=== PATIENT | male | born 1945 | race Caucasian/White ===

== ENCOUNTER 2021-02-02 09:34 | Emergency (ER) | payer MEDICARE, OTHER, SELFPAY ==
[2021-02-02 10:05] VITALS: BP 146/81; PULSE 65; RESP 14; TEMP 36.6; O2SAT 96; BMI 27.9
--- NOTE | 2021-02-02 10:07 | ED_ITS ---
HPI - GI Bleed General: Chief complaint: GI Bleed Stated complaint: rectum bleeding Time Seen by Provider: 02/02/21 09:49 History of Present Illness: HPI Narrative: Mr Snell is a 75-year-old gentleman without significant past medical history presents emergency department due to bloody diarrhea. Symptom onset was acute last night. He denies preceding known factors and it is been at his baseline health. He had multiple episodes of nonpainful bloody dark red stools. This improved slightly at about 3 AM however since recurred with passing clots. He denies similar episodes in the past. Overall the intensity is moderate. The course has mildly improved. He cannot think of any other specific provoking, exacerbating, or alleviating factors. The patient has not had a family history of similar. He does have a remote history of smoking. No alcohol use. No trauma. Relieving factors: bowel movement Review of Systems General: Reports: 10 or more systems reviewed and unremarkable except in HPI and below Narrative: CONSTITUTIONAL: denies fever, fatigue, weakness EYES - denies pain, denies loss of vision EARS - denies ear issues. NOSE - denies congestion or rhinorrhea. THROAT - denies sore throat or difficulty swallowing. CARDIOVASCULAR - denies chest pain and palpitations RESPIRATORY - denies shortness of breath and cough GASTROINTESTINAL - denies abdominal pain, no nausea vomiting, no prior changes in bowel habits GENITOURINARY - denies dysuria or urinary frequency MUSCULOSKELETAL- denies deformity or pain SKIN - denies rashes or new changed skin lesions NEUROLOGIC - denies focal weakness or sensory changes HEMATOLOGIC/LYMPHATIC - denies easy bruising or lymphadenopathy. [facility] ED PFSH: Medical History (Updated 02/02/21 @ 13:11 by Ramakrishna Romero MD) BPH loc w urin obs/LUTS HTN (hypertension) Palpitation Family History Mother , 87 Heart valve problem Failure to thrive in adult Brother Heart valve problem Torn aortic cusp Cancer Sister Heart valve problem Father , 80s Cancer Social History Smoking and tobacco status: former smoker Alcohol intake: never Marital status: Current occupational status: retired History of recent travel: No Physical Exam Narrative: EXAM NARRATIVE: GENERAL/CONSTITUTIONAL - well-appearing. No acute distress. Eyes - PERRL, no conjunctival injection ENMT - Atraumatic external nose and ears. Moist mucous membranes NECK - supple. trachea midline CARDIOVASCULAR - regular rate and rhythm. Peripheral pulses 2+ and equal RESPIRATORY -clear to auscultation bilaterally. No retractions or accessory muscle use. ABDOMEN/GI - Nontender/Nondistended. No tenderness to percussion or evidence of peritonitis MSK - Extremities without obvious deformity or tenderness to palpation SKIN - Warm, Dry NEURO - alert and appropriately oriented. strength and sensation intact. Moves all extremities equally. PSYCH - Appropriate mood and affect Course ED course: - Patient was seen and evaluated by me at bedside - Patient placed on cardiac monitors, IV access obtained - Initial evaluation notable for no acute distress, nontoxic appearance. Benign abdominal exam. - Labs and imaging obtained and reviewed - Labs notable for stable hemoglobin, no significant metabolic abnormalities to explain symptoms. - Imaging notable for increased stool burden, diverticulosis, no obvious other significant finding to explain patient's symptoms. - The incidental finding regarding gallbladder was discussed with the patient. I engaged in shared decision-making given the patient has no right upper quadrant tenderness or other typical cholecystitis symptoms. I offered ultrasound which the patient declined. This discussion was further aided by adding LFTs which were normal. - Upon serial reexamination after treatment the patient was similar without recurrence of melena or bloody diarrhea. - Based on patient history, evaluation, labs, and imaging as interpreted the most likely cause of the patient's condition is lower GI bleed, in the context of history, exam, and symptoms may be related to increased stool burden and diverticulosis. Bowel regimen was discussed with the patient. - The results of ED evaluation were discussed with the patient including prescriptions and/or symptomatic cares including appropriate and responsible use, followup plan, and return precautions. The patient verbalized understanding and felt safe for discharge. - Patient discharged in satisfactory condition. Vital Signs: Vital signs: Vital Signs Temperature 97.5 F L 02/02/21 13:37 Pulse Rate 50 L 02/02/21 13:37 Respiratory Rate 16 02/02/21 13:37 Blood Pressure 132/80 02/02/21 13:37 Pulse Oximetry 98 02/02/21 13:37 MDM - GI Bleed Medical Records: Attestation: I reviewed the patient's medical records. Lab Data: Attestation: I reviewed the patient's lab results. Labs: Lab Results 02/02/21 02/02/21 02/02/21 Range/Units 10:30 10:30 10:30 WBC 7.3 (4.0-10.0) 10^3/ uL RBC 4.88 (4.1-5.3) 10^6/u L Hgb 14.0 (11.7-16.6) g/dL Hct 42.8 (42.0-52.0) % MCV 87.7 (80-94) fl MCH 28.7 (28.0-34.0) pg MCHC 32.7 (30.0-36.0) g/dL RDW 14.3 (12.1-15.1) % Plt Count 279 (130-400) 10^3/c mm MPV 8.8 (7.4-10.4) fL Neut % (Auto) 57.8 % Lymph % (Auto) 26.1 % [place] % (Auto) 11.6 % Eos % (Auto) 3.4 % Baso % (Auto) 0.8 % Neut # (Auto) 4.22 (1.8-7.7) 10^3/u L Lymph # (Auto) 1.9 (0.8-4.8) 10^3/u L [place] # (Auto) 0.9 (0.2-0.9) 10^3/u L Eos # (Auto) 0.3 (0.0-0.8) 10^3/u L Baso # (Auto) 0.1 (0.0-0.1) 10^3/u L Nucleated RBC % (a uto) 0 % Nucleated RBCs # 0.0 /100WBC PT 13.50 (12.1-14.9) SECO NDS INR 1.00 (0.8-1.2) Sodium 138 (136-145) mmol/L Potassium 4.2 (3.5-5.1) mmol/L Chloride 103 (98-107) mmol/L Carbon Dioxide 28 (22-29) mmol/L Anion Gap 11.2 (5-19) BUN 28 H (8-23) mg/dL Creatinine 1.0 (0.7-1.2) mg/dL GFR Calculation Not Reportable Glucose 103 (65-115) mg/dL Calculated Osmolal ity 292 (285-295) mOsm/k g Calcium 8.6 (8.5-10.5) mg/dL Total Bilirubin (0.15-1.2) mg/dL Direct Bilirubin (0.00-0.30) mg/d L AST (0-40) U/L ALT (0-41) U/L Alkaline Phosphata se (40-130) IU/L Total Protein (6.6-8.7) g/dL Albumin (3.5-5.2) g/dL Globulin (1.3-4.6) g/dL Lipase (13-60) U/L 02/02/21 Range/Units 10:30 WBC (4.0-10.0) 10^3/ uL RBC (4.1-5.3) 10^6/u L Hgb (11.7-16.6) g/dL Hct (42.0-52.0) % MCV (80-94) fl MCH (28.0-34.0) pg MCHC (30.0-36.0) g/dL RDW (12.1-15.1) % Plt Count (130-400) 10^3/c mm MPV (7.4-10.4) fL Neut % (Auto) % Lymph % (Auto) % [place] % (Auto) % Eos % (Auto) % Baso % (Auto) % Neut # (Auto) (1.8-7.7) 10^3/u L Lymph # (Auto) (0.8-4.8) 10^3/u L [place] # (Auto) (0.2-0.9) 10^3/u L Eos # (Auto) (0.0-0.8) 10^3/u L Baso # (Auto) (0.0-0.1) 10^3/u L Nucleated RBC % (a uto) % Nucleated RBCs # /100WBC PT (12.1-14.9) SECO NDS INR (0.8-1.2) Sodium (136-145) mmol/L Potassium (3.5-5.1) mmol/L Chloride (98-107) mmol/L Carbon Dioxide (22-29) mmol/L Anion Gap (5-19) BUN (8-23) mg/dL Creatinine (0.7-1.2) mg/dL GFR Calculation Glucose (65-115) mg/dL Calculated Osmolal ity (285-295) mOsm/k g Calcium (8.5-10.5) mg/dL Total Bilirubin 0.5 (0.15-1.2) mg/dL Direct Bilirubin 0.20 (0.00-0.30) mg/d L AST 19 (0-40) U/L ALT 21 (0-41) U/L Alkaline Phosphata se 71 (40-130) IU/L Total Protein 6.1 L (6.6-8.7) g/dL Albumin 4.0 (3.5-5.2) g/dL Globulin 2.1 (1.3-4.6) g/dL Lipase 17 (13-60) U/L Discharge Plan Discharge Patient Disposition: Home Clinical Impression: Blood in stool, Diverticulosis, Constipation Condition: Stable Prescriptions: New Miralax 17 gram/dose powder 17 g PO BID Qty: 510 RF: 0 No Action hydrochlorothiazide 25 mg tablet 25 mg PO QAM RF: 0 omeprazole 20 mg capsule,delayed release(DR/EC) 20 mg PO BID RF: 0 lovastatin 40 mg tablet 40 mg PO BEDTIME RF: 0 multivitamin Tablet 1 tab PO DAILY RF: 0 bupropion HCl 150 mg tablet sustained-release 12 hr 150 mg PO DAILY RF: 0 Excedrin Migraine 250-250-65 mg Tablet 2 tab PO QAM RF: 0 potassium gluconate 595 mg (99 mg) Tablet 1,190 mg PO QAM RF: 0 amlodipine 5 mg tablet 5 mg PO QAM RF: 0 Discharge Orders: Discharge ED (Routine); Ordered 02/02/21 Ordered By: Ramakrishna Romero Referrals: Clint Christina MD [Primary Care Provider] - Discharge Diet: Advance as tolerated and Clear Liquid Discharge Activity: Resume usual activity Patient Instructions: Constipation (ED), Diverticulosis (ED) Activity Restrictions/Additional Instructions: Thank you for visiting the emergency department. You were seen and evaluated for blood in your stool. The exact cause of this is somewhat unclear though you were noted to have diverticulosis. Additionally you were noted to have retained stool in the colon. Based on ED evaluation at this point you can safely be discharged home. Please follow-up with your primary care provider. We recommend colonoscopy if you have not had one. You may use [id number] stool softeners with the goal of having applesauce consistency stool. Please return to the emergency department if you experience recurrence of your symptoms, lightheadedness, dizziness, shortness of breath, chest pain, right upper quadrant abdominal pain, other abdominal pain, or anything else that you are concerned about and feel needs emergency department evaluation. Coding Level of Care Code ED Activities Leader for Beatrice Tabares
--- NOTE | 2021-02-02 10:20 | CT_ITS ---
WS: [id number] CT ABDOMEN AND PELVIS WITH CONTRAST HISTORY: gi bleed TECHNIQUE: Imaging performed of the abdomen and pelvis with IV contrast. Single phase imaging of the abdomen. Coronal and sagittal reformats are submitted. All CT scans at [facility] use at least one of these dose optimization techniques: automated exposure control; mA and/or kV adjustment per patient size (includes targeted exams where dose is matched to clinical indication); or iterativ e reconstruction. IV CONTRAST: Omnipaque 300; 95 mL IV. Oral contrast: No DLP: 1547.44 mGy.cm COMPARISON: None available. Lower thorax: Emphysematous changes at the lung bases. Focal scar at the RIGHT lung base. Heart is no rmal size. Small hiatal hernia. Liver/biliary system: Normal size with no intrahepatic dilatation. Gallbladder: Cholelithiasis in a nondistended gallbladder. There is some very mild enhancement of the gallbladder wall suggesting acute inflammation. No adjacent fluid. No bile duct dilatation. Pancreas: Normal size pancreas and pancreatic duct. No adjacent inflammation. Spleen: Normal size spleen. No mass or infarct. Adrenal glands: Normal. Right kidney: Several cortical cysts. No solid mass or obstruction. Left kidney: Cortical cysts with no solid mass obstruction. Aorta: Moderate atherosclerosis with no aneurysm. Lymphadenopathy: None. Free fluid: None. GI tract: Normal appendix. There is extensive fecal retention and tortuosity of the colon. Numerous d iverticula in the descending and sigmoid colon. No evidence for acute diverticulitis. There is also m ild thickening of the stomach mucosa which can be seen without contrast distention. Abdominal wall: Fat containing umbilical hernia. Pelvis: Mildly enlarged prostate encroaching into the urinary bladder. No adenopathy or fluid. Bones: Posterior lumbar fusion at L4-S1. Bones are osteopenic. CT/CT abdomen pelvis w con* [id number] IMPRESSION: 1. Extensive fecal retention. Tortuous colon. 2. Extensive diverticular disease in the descending and sigmoid colon without acute diverticulitis. 3. Normal appendix. 4. Cholelithiasis with mild hyperemia of the gallbladder wall. Early changes o f early acute cholecystitis not excluded. Consider evaluation by ultrasound of the gallbladder. 5. Atherosclerosis aorta.
[2021-02-02 10:36] LABS: Basophils # 0.1 10^3/uL (0.0-0.1); Basophils % 0.8 %; Eosinophils # 0.3 10^3/uL (0.0-0.8); Eosinophils % 3.4 %; Hematocrit 42.8 % (42.0-52.0); Lymphocytes # 1.9 10^3/uL (0.8-4.8); Lymphocytes % 26.1 %; Mean Corpuscular HGB Conc 32.7 g/dL (30.0-36.0); Mean Corpuscular Hemoglobin 28.7 pg (28.0-34.0); Mean Corpuscular Volume 87.7 fl (80-94); Mean Platelet Volume 8.8 fL (7.4-10.4); Monocytes # 0.9 10^3/uL (0.2-0.9); Monocytes % 11.6 %; Neutrophils # 4.22 10^3/uL (1.8-7.7); Neutrophils % 57.8 %; Nucleated Red Blood Cells % 0 %; Platelet Count 279 10^3/cmm (130-400); Red Blood Count 4.88 10^6/uL (4.1-5.3); Red Cell Distribution Width 14.3 % (12.1-15.1); White Blood Count 7.3 10^3/uL (4.0-10.0)
[2021-02-02 10:59] LABS: Anion Gap 11.2 (5-19); Blood Urea Nitrogen 28 mg/dL (8-23); Calcium 8.6 mg/dL (8.5-10.5); Carbon Dioxide 28 mmol/L (22-29); Chloride 103 mmol/L (98-107); Glucose 103 mg/dL (65-115); Osmolality Calculated 292 mOsm/kg (285-295); Potassium 4.2 mmol/L (3.5-5.1); Sodium 138 mmol/L (136-145)
--- NOTE | 2021-02-02 11:12 | PC.PHAR ---
PT STATES HE TAKES CARE OF HIS OWN MEDICATIONS-PT STATES HE IS WEANING HIMSELF OFF OF THE BUPROPION 150MG RX FILLED 12/04/20 FOR 150MG DAILY FOR 3 DAYS THEN 150MG BID PT STATES HE DOESNT NEED THIS MEDICATION AND IS ONLY TAKING 150MG DAILY-PT STATES HE DCED HIS FINASTERIDE AND FLOMAX PT STATES HE HASNT TAKEN SINCE NOVEMBER 2020-
[2021-02-02 11:27] VITALS: BP 139/75; PULSE 56; RESP 16; TEMP 36.7; O2SAT 97
[2021-02-02] MEDS: iohexol 300 mg/mL 100 mL Btl IV (11:56)
[2021-02-02 12:59] LABS: Alanine Aminotransferase 21 U/L (0-41); Alkaline Phosphatase 71 IU/L (40-130); Aspartate Amino Transferase 19 U/L (0-40); Globulin 2.1 g/dL (1.3-4.6); Lipase 17 U/L (13-60); Total Bilirubin 0.5 mg/dL (0.15-1.2); Total Protein 6.1 g/dL (6.6-8.7)
[2021-02-02 13:23] VITALS: PULSE 50; RESP 16; TEMP 36.4; O2SAT 100
[2021-02-02 13:25] VITALS: BP 133/76; PULSE 50; RESP 16; TEMP 36.4; O2SAT 98
[2021-02-02 13:37] VITALS: BP 132/80; PULSE 50; RESP 16; TEMP 36.4; O2SAT 98
== END 2021-02-02 13:39 | disposition home or self-care (01) ==
PROVIDERS: Emergency Provider Emergency Medicine; PCP Family Medicine
DX: K92.1 Melena (principal); K59.00 Constipation, unspecified; K57.30 Diverticulosis of large intestine without perforation or abscess without bleeding; I10 Essential (primary) hypertension; Z87.891 Personal history of nicotine dependence
CPT/HCPCS: 74177; 80048; 80076; 83690; 85025; 85610; 99283; Q9967

== ENCOUNTER → 2022-02-01 09:04 | Outpatient (BNVA) | payer MEDICARE, OTHER, SELFPAY | PROVIDERS: PCP Family Medicine; Visit Provider Family Medicine | DX: E55.9 Vitamin D deficiency, unspecified (principal); R00.2 Palpitations; R73.09 Other abnormal glucose; I10 Essential (primary) hypertension; Z51.81 Encounter for therapeutic drug level monitoring; Z13.220 Encounter for screening for lipoid disorders; E53.8 Deficiency of other specified B group vitamins | CPT/HCPCS: 80053; 80061; 82306; 82607; 83036; 85025 ==

== ENCOUNTER → 2023-04-28 11:57 | Outpatient (BNVA) | payer MEDICARE, OTHER, SELFPAY | PROVIDERS: PCP Family Medicine; Visit Provider Family Medicine | DX: R06.00 Dyspnea, unspecified (principal); Z51.81 Encounter for therapeutic drug level monitoring; E55.9 Vitamin D deficiency, unspecified; E03.9 Hypothyroidism, unspecified; E53.8 Deficiency of other specified B group vitamins; E11.9 Type 2 diabetes mellitus without complications; N40.1 Benign prostatic hyperplasia with lower urinary tract symptoms; R25.2 Cramp and spasm; I10 Essential (primary) hypertension; M54.16 Radiculopathy, lumbar region; R53.81 Other malaise; R53.83 Other fatigue | CPT/HCPCS: 80053; 82306; 82607; 83036; 83735; 84153; 84443; 85025 ==

== ENCOUNTER 2023-05-08 09:18 | Outpatient (CLI) | payer MEDICARE, OTHER, SELFPAY ==
--- NOTE | 2023-05-08 09:30 | XR_ITS ---
WS: [id number] Exam: XR chest 2V* [id number] Date/Time of Exam: 05/08/2023 9:33 AM Reason For Exam: Dyspnea Comparison 03/11/2019. There is a 2.7 cm spiculated mass in the upper lobe of the LEFT lung. Remaining lung alejandro are clear . There is pulmonary hyperinflation. Normal cardiomediastinal silhouette. Bilateral apical pleural th ickening. Fusion hardware in the lower C-spine. Bony structures are intact. Chronic interstitial galan ges in the RIGHT base. IMPRESSION: 1. New 2.7 cm spiculated mass in the LEFT upper lobe. Pulmonary malignancy should be a consideration. 2. Pulmonary hyperinflation most likely indicating obstructive lung disease. Recommendations: Contrast CT scan of the chest recommended for further work-up.
== END 2023-05-08 09:19 | disposition home or self-care (01) ==
PROVIDERS: PCP Family Medicine; Visit Provider Family Medicine
DX: R06.00 Dyspnea, unspecified (principal); R91.8 Other nonspecific abnormal finding of lung field
CPT/HCPCS: 71046

== ENCOUNTER 2023-06-09 06:55 | Outpatient (CLI) | payer MEDICARE, OTHER, SELFPAY ==
--- NOTE | 2023-06-09 07:30 | CT_ITS ---
WS: [id number] CT chest w con* [id number] HISTORY: Lung nodule left upper lobe TECHNIQUE: Axial imaging performed through the thorax. Coronal and sagittal reformats are submitted. All CT scans at [facility] use at least one of these dose optimization techniques: automated exposure control; mA and/or kV adjustment per patient size (includes targeted exams where dose is mat ched to clinical indication); or iterative reconstruction. CONTRAST: Omnipaque 350; 100 mL IV. DLP: 436.40 mGy.cm COMPARISON: Chest radiograph 05/08/2023 Lungs and central airway: Hyperinflated lungs with advanced emphysema. Solid mass with spiculations L EFT upper lobe. There is pleural tagging and tethering. Mass measures at least 2.5 x 2.9 and extends over a length of 3.8 cm. There is adjacent pleural tethering and tagging. RIGHT apical fibrosis. No p neumonia. Pleura: Normal. No pleural effusion. Heart and pericardium: Normal size heart. No pericardial effusion. Mediastinum and carl: Numerous enlarged lymph nodes in the mediastinum and hilar regions. The largest lymph nodes LEFT pulmonary artery and LEFT hilar region. LEFT hilar region measures 1.4 x 2.4 cm. Pu lmonary artery lymph node measures 2.5 x 1.2 cm. Mildly enlarged RIGHT hilar and subcarinal lymph nod e. Vessels: Advanced atherosclerosis aorta. Normal size pulmonary artery. Chest wall and lower neck: No soft tissue masses. Upper abdomen: Small hiatal hernia. Layering small stones in the gallbladder. No adrenal mass. Mild c ortical thinning. Variable enhancement of the splenic vein is probably due to the phase of injection. Osseous structures: No destructive process. IMPRESSION: 1. Spiculated solid mass LEFT upper lobe corresponds to the recent radiographic abnormality. Mass cathy sures 2.5 x 2.9 x 3.8 cm highly suspicious for malignancy. 2. Mediastinal and hilar lymphadenopathy. 3. Advanced emphysema. 4. Cholelithiasis.
[2023-06-09] MEDS: iohexol 350 mg/mL 500 mL Btl (per mL) IV (07:40)
== END 2023-06-09 06:56 | disposition home or self-care (01) ==
LOC: RAD 06:55
PROVIDERS: PCP Family Medicine; Visit Provider Family Medicine
DX: R91.1 Solitary pulmonary nodule (principal); R59.0 Localized enlarged lymph nodes; J43.9 Emphysema, unspecified; K80.20 Calculus of gallbladder without cholecystitis without obstruction
CPT/HCPCS: 71260; Q9967

== ENCOUNTER → 2023-07-08 14:40 | Outpatient (BNVA) | payer MEDICARE, OTHER, SELFPAY | PROVIDERS: PCP Family Medicine; Referring Provider Family Medicine; Visit Provider Internal Medicine Pulmonary Disease | DX: R91.8 Other nonspecific abnormal finding of lung field (principal); J44.9 Chronic obstructive pulmonary disease, unspecified; F17.210 Nicotine dependence, cigarettes, uncomplicated; R59.9 Enlarged lymph nodes, unspecified | CPT/HCPCS: 99204 ==

== ENCOUNTER 2023-07-15 05:45 | Day surgery (SDC) | payer MEDICARE, OTHER, SELFPAY ==
[2023-07-15] VITALS (12 sets, daily range): BP systolic 114–156; BP diastolic 69–92; PULSE 73–99; RESP 14–25; TEMP 36.1–36.3; O2SAT 89–96; BMI 28.7
--- NOTE | 2023-07-15 05:48 | CT_ITS ---
WS: [id number] NONCONTRAST CT CHEST (ION protocol) HISTORY: For left upper lobe biopsies. Lung mass. Prior bronchoscopy. DLP: 427.[address] scans at [facility] use at least one of these dose optimization techniques: automated e xposure control; mA and/or kV adjustment per patient size (includes targeted exams where dose is matc hed to clinical indication); or iterative reconstruction. CT imaging of 0.50 mm is performed through the thorax with arms up and arms down prior to bronchoscop y for navigation purposes. Imaging will be used for guidance during bronchoscopy. Reidentified is a solid spiculated irregular mass in the LEFT upper lobe which extends to the pleura with pleural tethering and tagging. This is a lobulated irregular shaped mass which is previously richardson cribed. Additional central adenopathy is identified. Biapical pleural thickening and scarring. IMPRESSION: CT chest provided for navigational purpose during bronchoscopy. Reidentified is the large spiculated irregular shaped mass with pleural extension in the LEFT upper l obe with mediastinal and hilar adenopathy.
--- NOTE | 2023-07-15 06:20 | ECG_ITS ---
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 Measurements Intervals [place] Rate: 58 P: 38 DE: 151 QRS: -9 QRSD: 108 T: 41 QT: 400 QTc: 393 Interpretive Statements SINUS BRADYCARDIA WITH MARKED SINUS ARRHYTHMIA POSSIBLE LEFT ATRIAL ENLARGEMENT [-0.1mV P-WAVE IN V1/V2] INCOMPLETE RIGHT BUNDLE BRANCH BLOCK [90+ ms QRS DURATION, TERMINAL R IN V1/V2, 40+ ms S IN I/aVL/V4/V5/V6] POSSIBLE INFERIOR MYOCARDIAL INFARCTION , PROBABLY OLD [30 ms Q WAVE IN II/aVF] Compared to ECG 03/11/2019 11:17:37 Incomplete right bundle-branch block now present Myocardial infarct finding now present Electronically Signed On 07-15-2023 20:12:13 [email or web address] by Jason Gracia M.D. [id number]
[2023-07-15] MEDS: sodium chloride 0.9% 1,000 ML 30 ML IV (06:34)
--- NOTE | 2023-07-15 06:48 | P.ANESASSM_ITS ---
Pre-Anesthetic Assessment Height/Weight: Height 1.78 m Weight 90.718 kg Temp Pulse Resp BP Pulse Ox O2 Del Method 97.2 F L 75 18 156/92 93 Room Air 07/15/23 06:03 07/15/23 06:03 07/15/23 06:03 07/15/23 06:03 07/15/23 06:03 07/15/23 06:03 Operation Date: 07/15/23 07:00 Proposed Procedures p ION,EBUS, 96427, 51612, 79736, 81515, 03087, 41903, 43923, 21322, 67320, 96458, 27728, 57718, 54035, 63200, R91.8(Not Applicable) - Alvaro Dunlap MD s Ebus(Not Applicable) - Alvaro Dunlap MD Familial anesthetic complications: None Was Beta Joe taken within 24 hours: N/A Was Clonidine taken within 24 hours: N/A Last intake: Intake Last Liquid Date 07/14/23 Last Liquid Time 20:00 Last Solid Date 07/14/23 Last Solid Time 17:00 Social Tobacco and No alcohol Exam alert, oriented x 3, clear to auscultation bilaterally and regular rate & rhythm Airway Mallampati: Class III Dentition: full Pulmonary Chronic Obstructive Pulmonary Disease lung mass Remote PTX CV/HEM Hypertension able to achieve > 4 METS GI Gastroesophageal Reflux Disease Metabolic Hyperlipidemia Neuropsych Cerebrovascular Accident Anesthetic Plan ASA status: 3 Anesthesia: General Risk of > 500 ml blood loss (7ml/kg in children): No Medications/Allergies Home Medications Medication Instructions Recorded Confirmed Last Taken Type multivitamin 1 tab PO DAILY 07/27/19 07/11/23 07/14/23 History hydrochlorothiazide 25 mg tablet 25 mg PO QAM #90 tabs 03/04/23 07/11/23 07/14/23 Rx potassium gluconate 595 mg (99 mg) 99 mg PO BID 04/28/23 07/11/23 07/14/23 History tablet bupropion HCl 150 mg tablet,12 hr 150 mg PO BID #60 tabs 07/03/23 07/11/23 07/14/23 Rx sustained-release (Wellbutrin SR) ascorbic acid (vitamin C) 1,000 mg 1,000 mg PO DAILY 07/08/23 07/11/23 07/14/23 History tablet lactobacillus combination no.9 4 4,000 mmu cells PO DAILY 07/08/23 07/15/23 07/14/23 History billion cell capsule (Adult 50 Plus Probiotic) magnesium oxide 250 mg PO DAILY 07/08/23 07/11/23 07/14/23 History omega-3 fatty acids-fish oil 360 2 cap PO DAILY 07/08/23 07/15/23 07/14/23 History mg-1,200 mg capsule (Fish Oil) saw palmetto 450 mg capsule 900 mg PO DAILY 07/08/23 07/11/23 07/14/23 History tumeric 100 mg-tanner 150 mg-olive 1 cap PO DAILY 07/08/23 07/11/23 07/11/23 History 50 mg-oreg 150 mg-caprylate capsule zinc acetate 50 mg (zinc) capsule 50 mg PO DAILY 07/08/23 07/11/23 07/14/23 History (Galzin) lovastatin 40 mg tablet 40 mg PO BEDTIME 07/11/23 07/11/23 07/14/23 History omeprazole 20 mg capsule,delayed 20 mg PO BID 07/11/23 07/11/23 07/14/23 History release Allergies Allergy/AdvReac Type Severity Reaction Status Date / Time No Known Allergies Allergy Verified 07/15/23 05:57 Current Medications Generic Name Dose Route Start Last Admin Trade Name Freq PRN Reason Stop Dose Admin Sodium Chloride 1,000 mls @ 30 mls/hr 07/15/23 06:00 07/15/23 06:34 Sodium Chloride 0.9% IV 07/16/23 05:59 30 mls/hr .Q24H SOWMYA Administration PFSH Anesthesia Medical History Collapse of left lung H/o collapsed lung years ago and needed Pleurodesis Elevated PSA History of CVA (cerebrovascular accident) Skin cancer 5-FU cream used - on face Palpitation BPH loc w urin obs/LUTS HTN (hypertension) Surgical History S/P cervical spinal fusion S/P laminectomy with spinal fusion 11/04/16 Dr. Navas S/P rotator cuff repair 1998 X2 Status post lumbar spine surgery for decompression of spinal cord 1980; 1999 Hx of cataract surgery Family History Mother , 87 Valvular heart disease Failure to thrive in adult Brother Valvular heart disease Torn aortic cusp Cancer Sister Valvular heart disease Father , 80s Cancer Social History Smoking and tobacco/nicotine status: current every day tobacco/nicotine user cigarettes Packs smoked per day: 0.5 Years cigarettes smoked: 58 [ Other cigarette details: Started at age 17] Alcohol intake: never Marital status: Current occupational status: retired Data Anesthesia 07/15/23 06:23 Cardiac Studies: 2 No Data to Display
[2023-07-15 06:50] LABS: Anion Gap 11.7 (5-19); Blood Urea Nitrogen 26 mg/dL (8-23); Calcium 9.3 mg/dL (8.5-10.5); Carbon Dioxide 30 mmol/L (22-29); Chloride 103 mmol/L (98-107); Creatinine Clr Calc Pharmacy 64.7169; Glucose 111 mg/dL (65-115); Osmolality Calculated 297 mOsm/kg (285-295); Potassium 3.7 mmol/L (3.5-5.1); Sodium 141 mmol/L (136-145)
--- NOTE | 2023-07-15 06:52 | SC_ITS ---
WS: [id number] EXAMINATION: C-arm FL for Bronchoscopy ORDER DATE: 07/15/2023 6:52 AM REASON FOR EXAM: ION/EBUS COMPARISON: None available. FLUOROSCOPY TIME: 51.9 seconds # OF SPOT FILMS: 3 FINDINGS: Bronchoscope at the margin of the left upper lobe lesion. Deployment of the biopsy forceps overlies the left upper lobe density. No pneumothorax or evidence of significant hemorrhage. IMPRESSION: Bronchoscopic biopsy of left upper lobe lesion as above.
--- NOTE | 2023-07-15 07:12 | W.PM.OPSUD ---
Surgery/Procedure H&P Update DATE OF PROCEDURE: July 15, 2023 DATE H&P PERFORMED: 07/15/23 H&P UPDATE INFORMATION: I have reviewed H&P completed within last 30 days, I have examined patient prior to procedure and No changes to prior documentation PREOP DIAGNOSIS: Suspected malignancy PRIMARY INDICATION FOR PROCEDURE: rule out malignancy PLANNED PROCEDURE: Operation Date: 07/15/23 07:00 Proposed Procedures p ION,EBUS, 85883, 16137, 36915, 47386, 52617, 62483, 75457, 29542, 41656, 17297, 11611, 61298, 86370, 43268, R91.8(Not Applicable) - Alvaro Dunlap MD s Ebus(Not Applicable) - Alvaro Dunlap MD
[2023-07-15] MEDS: lidocaine 1% INJ 10 mL (per mL) XX (07:28)
[2023-07-15 08:43] LABS: Apprearance, Bronch Wash Cloudy (CLEAR); Color, Bronc Wash Red; Total Cells Counted Bronch 200
--- NOTE | 2023-07-15 08:50 | XR_ITS ---
WS: [id number] XR chest 1V portable [id number] REASON FOR EXAM: Post ION FINDINGS: No left pneumothorax post left upper anterior lobe bronchoscopic biopsy. No perilesional significant hemorrhage. No left pleural fluid. IMPRESSION: No acute abnormality post bronchoscopic lung biopsy.
--- NOTE | 2023-07-15 08:50 | PM.OP ---
Operative Report Date of procedure: July 15, 2023 Pre-op diagnosis: Spiculated left upper lobe lesion suspected malignancy Post-op diagnosis: Same Procedure done: -Dx Bronchoscope w/Washings or airway inspection -Dx Bronchoscope w/BAL -Bronch with computer image guided Navigational Bronchoscopy -Bronchoscopy w/Transbronchial lung biopsy(s), single lobe using forceps -Bronchoscopy w/Transbronchial needle aspiration biopsy(s), tracheal, main stem, and/or lobar bronchus -Bronchoscopy w/ therapeutic aspiration of the tracheobronchial tree (clearance of airway secretions, removal of mucus plugs) -EBUS Sampling 3 nodes Surgeon: Alvaro Dunlap MD Brief History: Mr. Omer Snell is a 78-year-old male with past medical history of COPD emphysema, hypertension, BPH referred by Dr. Christina for abnormal CT Chest. Patient has chronic smoking history; 1 pack/day for 58 years-currently smoking 0.75 ppd. Reports mild SOB with exertion, denies any other symptoms. He had a chest x-ray 05/08/2023 which showed new 2.3 cm spiculated mass in left upper lobe. Subsequent CT chest 06/09/2023 showed spiculated solid mass left upper lobe corresponds to recent radiographic abnormality measuring 2.5 x 2.9 x 3.8 cm highly suspicious for malignancy. There are numerous enlarged lymph nodes in the mediastinum and hilar regions. Patient reported decrease in energy but denied any significant weight loss. He gives history of having pnemothorax on right side after having pnenumonia in 1968 and apparently required pleurodesis. I have discussed with patient that given significant smoking history-the lesion in the lung is highly suspicious for malignancy and we need tissue diagnosis to confirm. For that I have given the option of going for robotic navigational guided biopsy of suspicious lesion as well as endobronchial ultrasound-guided surveillance and possible biopsies of hilar/mediastinal lymph nodes for staging. I have explained about the complications like pneumothorax given her significant background emphysema which may require chest tube placement. Bleeding is another possibility, majority of times the bleeding is controlled with instillation of cold saline or diluted epinephrine but extremely rarely to bleeding may not be well controlled, which may result in prolonged intubation and possibly bronchial harry placement to protect nonbleeding airway, convalescence in ICU, may even need IR embolization. There is also a very small chance of missing the lesion due to technical factors which may result in repeating the procedure. These are rare possibilities with current software combined with using live radial ultrasound,. Patient verbalized understanding for the indication of the procedure, nature of the procedure, alternatives, complications, benefits and agreed to proceed. Today comes for robotic bronchoscopy guided biopsy of left upper lobe lesion and endobronchial ultrasound-guided surveillance and biopsies of hilar/mediastinal lymph nodes Procedure: ROBOTIC BRONCHOSCOPY NOTE: Pre-procedure Verification: Prior to the procedure, the patient's identity was verified by full name, date of and medical record number. The patient's identity was verified on all pertinent medical records. Also prior to the procedure, a History and Physical was performed, and patient medications, allergies and sensitivities were reviewed. The patient's tolerance of previous anesthesia was reviewed. The risks and benefits of the procedure and the sedation options and risks were discussed with the patient. All questions were answered and informed consent was obtained. Planning: Using the [employer] planning software, this patient?s preoperative CT was loaded onto the system and then target and pathway mapping was performed. This was all done prior to the start of the procedure and appropriate plan verified prior to induction. Anesthesia: General anesthesia was used. Please see anesthesiology documentation for full details. A modified LNVP/[place] Protocol was used for robotic bronchoscopy with rapid Intubation, recruitment maneuvers, Tidal Volume around 8-10mL/Kg [place] Body Weight, and PEEP 10-15 as feasible. Time-Out: Prior to the start of the procedure, the patient's identification, proposed procedure, accurate signed consent, correctly labeled images and records, and need for prophylactic antibiotics were verified by the physician, the nurse, the anesthesiologist and the used car renovator in the procedure room. Procedural Details: After obtaining informed consent, The procedure was accomplished without difficulty. The patient tolerated the procedure well. Patient preparation: Patient was placed under general anesthesia. An 8.5 ETT was placed for bronchoscopy. The larynx and vocal cords were not visualized. The trachea was anatomically normal. There were significant thick mucus secretions in the trachea which were suctioned right away. The right sided airway was anatomically normal without endobronchial lesions. There were thick appearing secretions in most of the right away which were and then she sinus suctioned. The left sided airway was anatomically normal. There were thick appearing secretions in most of the right away which were suctioned. Therapeutic aspiration of the airways, initial encounter, was performed at the right bronchial tree. The therapeutic bronchoscope was then removed. We communicated with the anesthesia team to ensure proper ventilator settings for optimal peripheral bronchoscopy. FIRST LOBE: The Ion Shape Sensing Robotic Assisted Bronchoscope was brought into the field and the process of registration was carried out. The guide catheter was used for peripheral navigational bronchoscopy using the planned pathway into the Left upper lobe lesion and was able to be wedged peripherally at a distance of 4 mm away from the target. We locked the catheter position in, and removed the vision probe. We introduced the radial EBUS probe and obtained an concentric signal [id number] image location relative to the lesion in the same lobe. We confirmed our location with a fluoroscopic C-arm. We then removed the R-EBUS and introduced the biopsy tools starting with a 21 G ION bronchoscopic peripheral needle for Transbronchial Needle Aspirations (TBNA). The first pass was not sent for Rapid On Site Evaluation (BARRETT) as we do not have onsite pathology. We continued more biopsies in a cloud format. Transbronchial biopsies of Left upper lobe lesion were using forceps. Transbronchial biopsy technique was selected because the sampling site was not visible endoscopically. The sampling device penetrated the full thickness of the bronchial wall to obtain the biopsy of lung tissue. 6 biopsy passes were performed, and the same number of biopsy samples were obtained. Finally, we used a 10cc syringe filled with normal saline connected to the proximal portion of the ION catheter and slowly injected 20 cc and aspirated the contents for a bronchial alveolar lavage of the right upper lobe. The return was cloudy and blood tinged 13 cc . At this point and after confirming the absence of bleeding, we removed the channel. Minimal blood residue was cleared from the airway and the peripheral navigation portion of the procedure was concluded. Empiric cold saline was instilled through the catheter and tamponade held for 1-5 minutes. Next, we turned our attention to linear EBUS staging. An EBUS exam was performed: - Stations 4R, 7, 11 L were enlarged > 5mm and sampled in that order. - Stations [10L, 4L, 10 R; 11R] were also scanned but <5mm and thus did not meet criteria for sampling. - Level 4R station was identified with the EBUS scope at the lateral RMSB and3 passes were made using a 22G Olympus TBNA needle. - Level 7 station was identified with the EBUS scope at the medial LMSB/RMSB and 3 passes were made using a 22 G Olympus TBNA needle. - Level 11L station was identified with the EBUS scope at the LLL/L hilum and 4 passes were made using a 22G Olympus TBNA needle. - Rapid onsite path evaluation (BARRETT) was not utilized for this case. - Following completion of all diagnostic and therapeutic procedures, hemostasis was verified. The scope was removed and procedure concluded. Samples: A. Left upper lobe lesion 1. Total of 5 passes were made using needle aspiration ; we do not have onsite pathology and so all the material was placed in formalin for histopathology 2. Targeting the same area 6 passes were made using forceps ; we do not have onsite pathology and so all the material was placed in formalin for histopathology 4. Bronchoscope was wedged at the entrance of the anterior segment of left upper lobe, 20 mL of saline was instilled and returned 13 mL of bronchoalveolar lavage . The fluid was mixed with blood and specks of tissue. Samples for cell count, cytology, cultures B. EBUS guided Fine-needle aspiration biopsies were taken from station 11R, Station 7, station 11L 5. Total of 3 passes were made using needle aspiration from station 4R; all the material was placed in formalin and sent for histopathology 6. Total of 3 passes were made using needle aspiration from station 7; all the material was placed in formalin and sent for histopathology 7. Total of 4 passes were made using needle aspiration from station 11 L; all the material was placed in formalin and sent for histopathology Complications: None.The patient was extubated and brought to the PACU in stable condition. Postprocedure chest x-ray: There is no evidence of pneumothorax Disposition: Patient can be discharged home in stable condition. Pt, and family are aware that I am going to call them to update final biopsy results once available. Related Problem List Diagnoses (1) Lung nodule:
--- NOTE | 2023-07-15 10:05 | ANE.PACU2 ---
Inpatient post-anesthesia follow up: Airway intact: Yes Vital signs: Temperature 97 F Pulse Rate 75 Respiratory Rate 18 Blood Pressure 122/75 Pulse Oximetry 93 Oxygen Delivery Me thod Room Air Oxygen Flow Rate Fraction of Inspir ed Oxygen Hydration adequate: Yes Nausea and vomiting: No Pain level: 1 Mental status: Baseline
[2023-07-15 10:40] LABS: Cyto Order Verification No Order
[2023-07-15 11:29] LABS: PATH Referral Yes
[2023-08-06 07:34] LABS: PD-L1 (Clone 22C3) by IHC BBPL See Report
== END 2023-07-15 10:10 | disposition home or self-care (01) ==
PROVIDERS: PCP Family Medicine; Visit Provider Internal Medicine Pulmonary Disease
PROC: 0BJ08ZZ Inspection of Tracheobronchial Tree, Via Natural or Artificial Opening Endoscopic (ICD-10-PCS; CPT 31622; principal; 2023-07-15 07:00)
PROC: BB4BZZZ Ultrasonography of Pleura (ICD-10-PCS; 2023-07-15 07:00)
DX: C34.12 Malignant neoplasm of upper lobe, left bronchus or lung (principal); J44.9 Chronic obstructive pulmonary disease, unspecified; I10 Essential (primary) hypertension; K21.9 Gastro-esophageal reflux disease without esophagitis; E78.5 Hyperlipidemia, unspecified; Z86.73 Personal history of transient ischemic attack (TIA), and cerebral infarction without residual deficits; N40.1 Benign prostatic hyperplasia with lower urinary tract symptoms; N13.8 Other obstructive and reflux uropathy; F17.210 Nicotine dependence, cigarettes, uncomplicated
CPT/HCPCS: 31623; 31627; 31628; 31629; 31645; 31653; 71045; 71250; 76000; 80048; 80503; 87070; 87205; 88305; 88341; 88342; 89050; 93005; J0330; J1100; J2405; J2704; J3010; J3490; J7030

== ENCOUNTER 2023-07-17 10:43 | Outpatient (CLI) | payer MEDICARE, OTHER, SELFPAY ==
[2023-07-17 10:56] VITALS: PULSE 60; RESP 18; O2SAT 97
[2023-07-17] MEDS: albuterol 2.5 mg/3 mL Neb INHALATION (10:56)
[2023-07-17 11:00] VITALS: PULSE 62
== END 2023-07-17 10:44 | disposition home or self-care (01) ==
LOC: RT 10:46
PROVIDERS: PCP Family Medicine; Visit Provider Internal Medicine Pulmonary Disease
DX: R91.8 Other nonspecific abnormal finding of lung field (principal); R06.09 Other forms of dyspnea; F17.210 Nicotine dependence, cigarettes, uncomplicated; R94.2 Abnormal results of pulmonary function studies
CPT/HCPCS: 94060; 94618; 94726; 94729; J7613

== ENCOUNTER 2023-07-29 12:47 | Oncology outpatient (recurring) (ONCR) | payer MEDICARE, OTHER, SELFPAY | END 2023-08-21 23:59 | disposition home or self-care (01) | LOC: ONCMED 12:48 | PROVIDERS: PCP Family Medicine; Visit Provider Internal Medicine Pulmonary Disease | DX: C34.12 Malignant neoplasm of upper lobe, left bronchus or lung (principal); J44.9 Chronic obstructive pulmonary disease, unspecified; Z85.820 Personal history of malignant melanoma of skin; Z87.891 Personal history of nicotine dependence | CPT/HCPCS: 99205; 99214 ==

== ENCOUNTER 2023-08-05 10:14 | Outpatient (CLI) | payer MEDICARE, OTHER, SELFPAY ==
--- NOTE | 2023-08-05 10:30 | PETR_ITS ---
PROCEDURE INFORMATION: Exam: PET/CT Skull Base to Mid-thigh Exam date and time: 08/05/2023 11:19 AM Age: 78 years old Clinical indication: Abnormal findings; Lung nodule. There is a history of bronchoscopy 07/15/2023. LABS AND CLINICAL REPORTS: Glucose: 119 mg/dl Treatment strategy for malignancy (PET staging): Initial Staging (PI) TECHNIQUE: Imaging protocol: Following at least four-hour fasting and following the injection of radiopharmaceutical, low dose CT images were obtained. Then, PET images were obtained. Attenuation corrected images were constructed using the CT scan. Fused images of PET and CT were reviewed. The standardized uptake values (SUV) reported below are maximum values within a region of interest, expressed in gm/ml. Exam includes orbital meatal line to mid-thigh. Radiopharmaceutical: 12.66 mCi F-18 FDG (Fluorodeoxyglucose), IV. Time of imaging post radiopharmaceutical administration: 1 hour Injection site: Right antecubital COMPARISON: CT chest 07/15/2023, CT chest 06/09/2023, CT abdomen pelvis w con* [id number] 02/02/2021 11:54 AM FINDINGS: Brain: Visualized brain has normal physiologic uptake. Pharynx: No abnormal uptake. Larynx: No abnormal uptake. Lungs, pleura and trachea: A similar solid spiculated left upper lobe mass is present measuring up to 4.9 x 2.9 cm in the axial plane on series 3, image 77, SUV max 10.2. A spiculated solid medial right lower lobe nodule measures 1.3 cm in diameter on series 3, image 99, SUV max 2.7 and is new compared with the recent CT of 07/15/2023. Additional smaller new nodular densities in the medial right lower lobe are noted which are not radiotracer avid measuring 8 mm on series 3, image 106 and 6 mm on series 3, image 114. Mild bilateral centrilobular emphysematous changes are noted bilaterally. Non radiotracer avid mild, right greater than left biapical pleural scarring is present. Heart: Normal physiologic uptake. Mediastinal space: No abnormal uptake. Liver: No abnormal uptake. Gallbladder and bile ducts: No abnormal uptake. Stones in the gallbladder are noted. Pancreas: No abnormal uptake. Spleen: No abnormal uptake. Adrenal glands: No abnormal uptake. Kidneys and ureters: Normal physiologic uptake. Rounded low-density structures arising from the medial and lateral aspect of the mid right kidney are not radiotracer avid compatible with probable benign cysts. Unremarkable left kidney. Stomach and bowel: No abnormal uptake. There are scattered colonic diverticula. Reproductive: There is moderate prominence of the prostate gland. Subtle uptake along the posteroinferior aspect of the prostate gland on the right is noted, SUV max 3.2. Vasculature: No abnormal uptake. Lymph nodes: A similar superior left hilar lymph node measures 2.6 x 1.3 cm on series 3, image 79, SUV max 6.9. Bones/joints: No abnormal uptake in the visualized axial and appendicular skeleton. Degenerative changes in the spine are present. Anterior metallic fusion from C5 through C7 is noted in there is posterior metallic fusion from L4 through S1. Primary osteoarthritic changes of the right glenohumeral joint are noted.The bones appear demineralized. Soft tissues: No abnormal uptake in the visualized head, neck, chest, abdomen, pelvis, and extremities. METRICS: Mediastinal blood pool: SUV max 2.2 [id number] IMPRESSION: 1. A solid left upper lobe mass is radiotracer avid consistent with malignancy. Correlation with the recent bronchoscopy results is recommended. 2. A solid medial right lower lobe nodule demonstrates mild uptake, with adjacent smaller nodules which are not radiotracer avid. As all of these right lower lobe nodules are new since the recent prior CT of 07/15/2023, atypical infectious involvement may account for this appearance. Metastatic lesions are less likely. 3. A radiotracer avid enlarged left hilar lymph node is noted consistent with malignancy. 4. Subtle uptake in the prostate gland on the right is noted. Assessment of the prostate gland is limited by PET-CT. Correlation with clinical findings/PSA value is recommended. 5. Additional nonurgent findings as detailed above.
== END 2023-08-05 10:15 | disposition home or self-care (01) ==
LOC: RAD 10:15
PROVIDERS: PCP Family Medicine; Visit Provider Internal Medicine Pulmonary Disease
DX: R91.8 Other nonspecific abnormal finding of lung field (principal); R91.1 Solitary pulmonary nodule; R59.0 Localized enlarged lymph nodes; R93.89 Abnormal findings on diagnostic imaging of other specified body structures
CPT/HCPCS: 78815; A9552

== ENCOUNTER 2023-08-19 09:43 | Outpatient (CLI) | payer MEDICARE, OTHER, SELFPAY ==
--- NOTE | 2023-08-19 09:48 | XR_ITS ---
WS: [id number] Exam: XR chest 2V* [id number] Date/Time of Exam: 08/19/2023 10:10 AM Reason For Exam: ADENOCARCINOMA OF UPPER LOBE OF LEFT LUNG Comparison 07/15/2023. Again noted is an ill-defined small mass in the upper lobe of the LEFT lung. No change. The lungs are otherwise clear and fully expanded. No pleural effusions. Normal cardiomediastinal silhouette. Bilat eral apical pleural thickening. Fusion hardware in the lower C-spine. IMPRESSION: 1. Ill-defined soft tissue mass with fibrous changes in the upper LEFT lobe. The appearance is stable . 2. Other minor nonacute findings as above.
--- NOTE | 2023-08-19 10:00 | NM_ITS ---
WS: [id number] NUCLEAR MEDICINE PERFUSION LUNG SCAN (quantitative examination). HISTORY: for preoperative assessment of left upper lobectomy COMPARISON: Chest radiograph 08/19/2023. TECHNIQUE: Perfusion: 4.8 mCi of technetium 99m MAA IV. Quantitative assessment of perfusion to both lungs has been submitted. Lungs are hyperinflated. There is mild heterogeneous perfusion throughout both lungs. The RIGHT diaph ragm is slightly elevated. Percent uptake within the LEFT lung is 41.4%. Percent uptake within the RIGHT lung is 58.6%. LEFT upper zone: 9.2%. RIGHT upper zone: 14.1%. LEFT mid zone: 19.9%. RIGHT mid zone: 32.5%. LEFT lower zone: 12.3%. RIGHT lower zone: 11.9%. IMPRESSION: 1. Qualitative assessment perfusion to each lung as described above. Slightly greater perfusion to th e RIGHT lung. 2. Low zone of perfusion is in the LEFT upper zone.
== END 2023-08-19 09:44 | disposition home or self-care (01) ==
LOC: RAD 09:44
PROVIDERS: PCP Family Medicine; Visit Provider Internal Medicine Pulmonary Disease
DX: C34.12 Malignant neoplasm of upper lobe, left bronchus or lung (principal); J44.9 Chronic obstructive pulmonary disease, unspecified
CPT/HCPCS: 71046; 78580; A9540

== ENCOUNTER → 2023-08-29 10:48 | Outpatient (BNVA) | payer MEDICARE, OTHER, SELFPAY | PROVIDERS: PCP Family Medicine; Referring Provider Internal Medicine Medical Oncology; Visit Provider Surgery | DX: C34.12 Malignant neoplasm of upper lobe, left bronchus or lung (principal) | CPT/HCPCS: 99204 ==

== ENCOUNTER 2023-09-04 10:27 | Day surgery (SDC) | payer MEDICARE, OTHER, SELFPAY ==
--- NOTE | 2023-09-04 10:32 | SC_ITS ---
WS: [id number] INTRAOPERATIVE TECHNIQUE: 2 Spot fluoroscopic images for intraoperative purposes. FLUOROSCOPY TIME: 2.2 seconds CLINICAL INFORMATION: Mediport placement FINDINGS: RIGHT Port-A-Cath with tip in the distal SVC. No visualized pneumothorax in the partially visualized RIGHT lung. Partially visualized postoperative changes lower cervical spine. IMPRESSION: Images obtained for intraoperative purposes.
[2023-09-04 10:49] VITALS: BMI 27.1
[2023-09-04 11:24] VITALS: BP 162/99; PULSE 78; RESP 18; TEMP 36.2; O2SAT 94
--- NOTE | 2023-09-04 11:46 | ANES.PREANE2 ---
Pre-Anesthetic Assessment Height/Weight: Height 1.8 m Weight 88.451 kg Temp Pulse Resp BP Pulse Ox O2 Del Method 97.2 F L 78 18 162/99 94 Room Air 09/04/23 11:24 09/04/23 11:24 09/04/23 11:24 09/04/23 11:24 09/04/23 11:24 09/04/23 10:43 Operation Date: 09/04/23 12:00 Proposed Procedures p [id number] port placement C34.12,(Not Applicable) - Ricardo Forman DO Familial anesthetic complications: None Was Beta Joe taken within 24 hours: N/A Was Clonidine taken within 24 hours: N/A Last intake: Intake Last Liquid Date 09/03/23 Last Solid Date 09/03/23 Last Solid Time 23:30 Social No alcohol and No tobacco Exam alert, oriented x 3, clear to auscultation bilaterally and regular rate & rhythm Airway Mallampati: Class II Dentition: full Pulmonary Chronic Obstructive Pulmonary Disease remote ptx lung mass CV/HEM Hypertension GI Gastroesophageal Reflux Disease Neuropsych Cerebrovascular Accident Anesthetic Plan ASA status: 4 Anesthesia: MAC Risk of > 500 ml blood loss (7ml/kg in children): No Medications/Allergies Home Medications Medication Instructions Recorded Confirmed Last Taken Type multivitamin 1 tab PO DAILY 07/27/19 09/03/23 09/03/23 History hydrochlorothiazide 25 mg tablet 25 mg PO QAM #90 tabs 03/04/23 09/03/23 09/03/23 Rx potassium gluconate 595 mg (99 mg) 99 mg PO BID 04/28/23 09/03/23 09/02/23 History tablet ascorbic acid (vitamin C) 1,000 mg 1,000 mg PO DAILY 07/08/23 09/03/23 09/03/23 History tablet magnesium oxide 250 mg PO DAILY 07/08/23 09/03/23 09/02/23 History omega-3 fatty acids-fish oil 360 2 cap PO DAILY 07/08/23 09/03/23 09/02/23 History mg-1,200 mg capsule (Fish Oil) saw palmetto 450 mg capsule 900 mg PO DAILY 07/08/23 09/03/23 09/03/23 History turmeric 100 mg-tanner 150 1 cap PO DAILY 07/08/23 09/03/23 09/02/23 History mg-olive 50 mg-oreg 150 mg-capryl capsule zinc acetate 50 mg (zinc) capsule 50 mg PO DAILY 07/08/23 09/03/23 09/02/23 History (Galzin) lovastatin 40 mg tablet 40 mg PO BEDTIME 07/11/23 09/03/23 09/02/23 History omeprazole 20 mg capsule,delayed 20 mg PO BID 07/11/23 09/03/23 09/02/23 History release albuterol sulfate 90 mcg/actuation 2 inh inhalation Q8H PRN shortness 07/15/23 09/03/23 Unknown Rx aerosol inhaler (Ventolin HFA) of breath or wheezing #8.5 grams cholecalciferol (vitamin D3) 50 50 mcg PO DAILY 07/29/23 09/03/23 09/02/23 History mcg (2,000 unit) capsule glucosamine HCl 500 mg tablet 500 mg PO BID 07/29/23 09/03/23 09/02/23 History tiotropium bromide 1.25 2 puff inhalation DAILY 07/29/23 09/03/23 09/03/23 History mcg/actuation mist for inhalation (Spiriva Respimat) Allergies Allergy/AdvReac Type Severity Reaction Status Date / Time No Known Allergies Allergy Verified 09/03/23 09:25 [facility] Anesthesia Medical History GERD (gastroesophageal reflux disease) Degenerative joint disease of spine Hyperlipidemia COPD (chronic obstructive pulmonary disease) Collapse of left lung H/o collapsed lung years ago and needed Pleurodesis Elevated PSA History of CVA (cerebrovascular accident) Skin cancer 5-FU cream used - on face Palpitation BPH loc w urin obs/LUTS HTN (hypertension) Surgical History History of bronchoscopy (07/15/23) Navigational bronchoscopy/EBUS History of melanoma excision S/P cervical spinal fusion S/P laminectomy with spinal fusion 11/04/16 Dr. Navas S/P rotator cuff repair 1998 X2 Status post lumbar spine surgery for decompression of spinal cord 1980; 1999 Hx of cataract surgery Family History Mother , 87 Valvular heart disease Failure to thrive in adult Brother Valvular heart disease Torn aortic cusp Cancer Sister Valvular heart disease Father , 80s Cancer Social History Smoking and tobacco/nicotine status: former use of tobacco/nicotine Quit status (tobacco/nicotine): has quit using Year quit tobacco: 2023 Former quit date comment: 50 years tobacco use Alcohol intake: never Marital status: Current occupational status: retired Data Anesthesia Cardiac Studies: No Data to Display
[2023-09-04] MEDS: sodium chloride 0.9% 1,000 ML 30 ML IV (12:00)
--- NOTE | 2023-09-04 12:00 | W.PM.OPSUD ---
Surgery/Procedure H&P Update DATE OF PROCEDURE: September 04, 2023 DATE H&P PERFORMED: 08/29/23 H&P UPDATE INFORMATION: I have reviewed H&P completed within last 30 days, I have examined patient prior to procedure and No changes to prior documentation PLANNED PROCEDURE: Operation Date: 09/04/23 12:00 Proposed Procedures p [id number] port placement C34.12,(Not Applicable) - Ricardo Forman, DO
[2023-09-04] MEDS: ceFAZolin 2,000 MG in sodium chloride 0.9% (plus) 50 ML 100 MG IV (12:09)
[2023-09-04] MEDS: heparin, porcine 1,000 unit/mL INJ 10 mL 10000 UNIT IRRIGATION (12:27)
[2023-09-04] MEDS: lidocaine-epi 2% PF 1:200,000 20 mL SDV XX (12:27)
--- NOTE | 2023-09-04 12:44 | P.OP_ITS ---
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 Oncology requested Mediport placement for c hemotherapy access. The risk and benefits were explained and documented. Procedure: The patient was taken to the operating room and placed supine on the operating room table. All bony prominences were padded. She was given IV sedation and monitored throughout the case by the anesthesia personnel. SCDs were placed and turned on. The arms were tucked to the side. Patient received Ancef 2 g preoperatively IV. The bilateral chest wall was prepped and draped in usual sterile fashion using chlorhexidine base prep. Sterile drapes were applied. We did procedure pause prior to beginning. An 18 gauge needle was placed in the right subclavian vein. Dark, nonpulsatile blood was aspirated. A guidewire was placed through the needle centrally toward the atrial/vena caval junction. Fluoroscopy visualized good placement. The needle was removed and the guidewire was clipped to the drape with a hemostat. Further local anesthetic was infiltrated in the soft tissues of the right chest wall and a #15 blade was used to make a horizontal skin incision. A subcutaneous Mediport pocket was created using Bovie cautery, dissecting down through the skin and subcutaneous tissues. Meticulous hemostasis was achieved. The Mediport was sutured in position using 3-0 vicryl suture x2 stitches. A #15 blade was used to make a small skin tonio around the guidewire insertion area. The Mediport tubing was tunneled through the subcutaneous tissues up to the needle insertion location. A dilator with a peel-away sheath was placed over the guidewire and placed c entrally. After measuring the Mediport tubing was cut to length so that the tip would end at the atrial/vena caval junction. The inner cannula and the guidewire were removed, leaving the dilator sheath in place. The Mediport was flushed. The tip of the catheter was inserted through the peel-away sheath and the peel-away sheath removed in the standard fashion. The Mediport was accessed with a strai ght Bagley needle and dark, nonpulsatile blood was aspirated and flushed using heparinized saline to hep-lock the Mediport. Final fluoroscopy visualization showed no kink in the catheter and the tip of the Mediport tubing near the atrial/vena caval junction. Both skin incisions were thoroughly irrigated and suctioned dry. Meticulous hemostasis noted. The dermis was approximated with 3-0 Vicryl in an interrupted fashion. Skin was closed with Dermabond. Patient was awakened from anesthesia and transferred via her cart to the recovery room in stable condition. All needle, sponge, and instrument counts were correct per the operating personnel x2 counts.
--- NOTE | 2023-09-04 12:44 | XRR_ITS ---
PROCEDURE INFORMATION: Exam: XR Chest Exam date and time: 09/04/2023 12:52 PM Age: 78 years old Clinical indication: Device placement; Other: Postop mediport placement; Prior surgery; Surgery date: Post-operative (0-2 days) TECHNIQUE: Imaging protocol: Radiologic exam of the chest. Views: 1 view. COMPARISON: CR XR chest 2V* [id number] 08/19/2023 10:11 AM FINDINGS: Tubes, catheters and devices: Infusion port enters from the right and terminates in the SVC. Lungs: Stable masslike opacity with adjacent infiltrate in the left upper lobe. Mild interstitial prominence. Pleural spaces: Unremarkable. No pleural effusion. No pneumothorax. Heart/Mediastinum: Unremarkable. No cardiomegaly. Bones/joints: Prior anterior cervical fusion. XR/XR chest 1V portable [id number] IMPRESSION: Left upper lobe mass.
[2023-09-04 12:47] VITALS: BP 124/72; PULSE 65; RESP 16; TEMP 36.1; O2SAT 96
[2023-09-04 12:52] VITALS: BP 135/66; PULSE 64; RESP 16; O2SAT 94
[2023-09-04 12:57] VITALS: BP 127/75; PULSE 64; RESP 16; O2SAT 96
[2023-09-04 13:05] VITALS: BP 161/85; PULSE 67; RESP 18; TEMP 36.1; O2SAT 97
[2023-09-04 13:20] VITALS: BP 162/91; PULSE 66; RESP 18; O2SAT 96
--- NOTE | 2023-09-04 13:35 | ANE.PACU2 ---
Inpatient post-anesthesia follow up: Airway intact: Yes Vital signs: Temperature 97.0 F Pulse Rate 66 Respiratory Rate 18 Blood Pressure 162/91 Pulse Oximetry 96 Oxygen Delivery Me thod Room Air Oxygen Flow Rate Fraction of Inspir ed Oxygen Hydration adequate: Yes Nausea and vomiting: No Pain level: 1 Mental status: Baseline
== END 2023-09-04 13:35 | disposition home or self-care (01) ==
PROVIDERS: PCP Family Medicine; Visit Provider Surgery
PROC: (CPT 36561; principal; 2023-09-04 12:00)
DX: C34.12 Malignant neoplasm of upper lobe, left bronchus or lung (principal); J44.9 Chronic obstructive pulmonary disease, unspecified; I10 Essential (primary) hypertension; K21.9 Gastro-esophageal reflux disease without esophagitis; Z86.73 Personal history of transient ischemic attack (TIA), and cerebral infarction without residual deficits; E78.5 Hyperlipidemia, unspecified; N40.1 Benign prostatic hyperplasia with lower urinary tract symptoms; N13.8 Other obstructive and reflux uropathy; Z87.891 Personal history of nicotine dependence
CPT/HCPCS: 36561; 71045; 77001; C1788; J0690; J1644; J2704; J7030

== ENCOUNTER 2023-09-16 09:45 | Oncology outpatient (recurring) (ONCR) | payer MEDICARE, OTHER, SELFPAY ==
[2023-09-09 08:47] LABS: Basophils # 0.1 10^3/uL (0.0-0.1); Basophils % 0.8 %; Eosinophils # 0.4 10^3/uL (0.0-0.8); Eosinophils % 3.4 %; Hematocrit 47.1 % (37-53); Lymphocytes # 2.3 10^3/uL (0.8-4.8); Lymphocytes % 22.2 %; Mean Corpuscular HGB Conc 32.9 g/dL (30-55); Mean Corpuscular Hemoglobin 28.2 pg (27-33); Mean Corpuscular Volume 85.6 fl (82-101); Monocytes # 0.9 10^3/uL (0.2-0.9); Monocytes % 8.3 %; Neutrophils # 6.75 10^3/uL (1.8-7.7); Neutrophils % 64.7 %; Nucleated Red Blood Cells % 0 %; Platelet Count 306 10^3/cmm (157-399); Red Cell Distribution Width 15.8 % (12.1-15.1); White Blood Count 10.44 10^3/uL (3.29-11.43)
[2023-09-09 09:14] LABS: Alanine Aminotransferase 20 U/L (0-41); Alkaline Phosphatase 105 U/L (40-130); Anion Gap 12.8 (5-19); Aspartate Amino Transferase 23 U/L (0-40); Blood Urea Nitrogen 25 mg/dL (8-23); Calcium 9.1 mg/dL (8.5-10.5); Carbon Dioxide 29 mmol/L (22-29); Chloride 101 mmol/L (98-107); Globulin 2.6 g/dL (1.3-4.6); Glucose 100 mg/dL (65-115); Osmolality Calculated 292 mOsm/kg (285-295); Potassium 3.8 mmol/L (3.5-5.1); Sodium 139 mmol/L (136-145); Total Bilirubin 0.2 mg/dL (0.15-1.2); Total Protein 6.6 g/dL (6.6-8.7)
--- NOTE | 2023-09-09 10:04 | ONCRAD TMN_ITS ---
Radiation Oncology Weekly Treatment Management Patient: Omer Snell MR#: [id number] : 1945 Attending Physician: David Conteh Date of Service: 09/09/2023 Referring Physician(s) : Dr. Bebeto Gillis Diagnosis: C34.12 - Malignant neoplasm of upper lobe, left bronchus or lung, Diagnosed 07/15/2023 (Active) Radiotherapy to date: Course: Left Lung 2023, Treatment Site: LT Lung 60Gy, Ref. ID: [id number], Energy: 6X, Dose/Fx (cGy): 200, #Fx: , Dose Correction (cGy): 0, Total Dose Delivered (cGy): 200, Start Date: 09/09/2023, Elapsed Days: 0 Reason for visit: The patient is being seen today as part of their regularly scheduled weekly on treatment visits to assess for acute toxicities from radiotherapy. Review of Systems: Just began radiation today. Chemo to follow later today as well. Eating ok. Normal activities. No smoking. Vital Signs: Performed on 09/09/2023 8:50 AM BMI - 27.141 kg/m2 (high), Height - 71 in, Weight - 194.6 lbs, Temperature - 97.3 f, Pulse - 61 /min, Respiration - 16 /min, O2 Sat - 98 %, Pain - 0, Fatigue - 0 and BP - 118/ 71 mm(hg). Physical Exam: omitted Imaging: Radiation therapy imaging related to accurate target localization (i.e. KV, MV and CBCT) was reviewed. Appropriate changes, if any, were made to ensure treatment accuracy. Plan: Good tolerance of first treatment. Questions answered. Continue as planned. Signed by: David Conteh 09/09/2023 10:03:15 AM
[2023-09-09] MEDS: sodium chloride 0.9% 250 ML 75 ML IV (11:13)
[2023-09-09] MEDS: acetaminophen 325 mg Tablet 650 MG PO (11:14)
[2023-09-09] MEDS: palonosetron 0.25 mg/5 mL SDV IVP (11:17)
[2023-09-09] MEDS: famotidine 20 mg/2 mL INJ IVP (11:19)
[2023-09-09] MEDS: diphenhydrAMINE 50 mg/mL SDV 1mL 25 MG IVP (11:21)
[2023-09-09] MEDS: dexamethasone 20 MG in sodium chloride 0.9% 50 ML 188 MG IV (11:30)
[2023-09-09] MEDS: PACLitaxeL 100 MG in sodium chloride 0.9%(non-DEHP) 250 ML 266.670000000000016 MG IV (11:52)
[2023-09-09] MEDS: CARBOplatin 220 MG in sodium chloride 0.9% 500 ML 522 MG IV (13:10)
[2023-09-09 14:17] VITALS: BP 144/77; PULSE 66; RESP 16; TEMP 36.3; O2SAT 94
--- NOTE | 2023-09-15 09:47 | N.ONRAD NP_ITS ---
Radiation Oncology New Patient Visit Patient: Omer Snell MR#: [id number] : 1945> Age: 78> Sex: Male> Account #: Dictated by: Dr. Jennifer Merrill Date of Service: 08/27/2023 Referring Physician(s) : Dr. Gillis Diagnosis: Poorly differentiated adenocarcinoma of the lung Radiotherapy to date: Summary > No prior radiation therapy. Chief Complaint / History of Present Illness: Patient is a 78-year-old gentleman who initially presented with increasing cough, shortness of breath and weakness in April 2023. He had a chest x-ray which showed a 2.7 cm mass in the left upper lobe. He then had a CT scan in May which confirmed the mass in the left upper lobe with adjacent pleural thickening and visualized lymph nodes in the carl and mediastinum. The mass in the lung measured 2.5 x 2.9 x 3.8 cm in size. He underwent bronchoscopy in June and the biopsy from the primary mass showed a poorly differentiated adenocarcinoma of the lung. He subsequently had a PET scan which confirmed the mass and now measured 4.9 x 2.9 cm in size with an SUV of 10.2. He was noted to have a second nodule in the right lower lobe that measured 1.3 cm in diameter but only had an SUV of 2.7. He did have a left hilar node that measured 2.6 x 1.3 cm in size with an SUV of 6.9. He is seen in consultation today to discuss combined modality therapy. Current Medications: albuterol sulfate 90 mcg/actuation (Ventolin HFA) 2 inhalations inhalation Q8H PRN ascorbic acid (vitamin C) 1,000 mg PO DAILY cholecalciferol (vitamin D3) 50 mcg PO DAILY glucosamine HCl 500 mg PO BID hydrochlorothiazide 25 mg PO QAM lactobacillus combination no.9 (Adult 50 Plus Probiotic) 4,000 mmu cells PO DAILY lovastatin 40 mg PO BEDTIME magnesium oxide 250 mg PO DAILY multivitamin 1 tab PO DAILY omega-3 fatty acids-fish oil 360-1,200 mg (Fish Oil) 2 caps PO DAILY omeprazole 20 mg PO BID potassium gluconate 99 mg PO BID saw palmetto 900 mg PO DAILY tiotropium bromide 1.25 mcg/actuation (Spiriva Respimat) 2 puffs inhalation DAILY midhziw-pwna-tfdju-oreg-capryl 100 mg-150 mg- 50 mg-150 mg 1 cap PO DAILY zinc acetate (Galzin) 50 mg PO DAILY Allergies: NKA Medical History: GERD, DJD, hyperlipidemia, COPD, history of collapsed lung, CVA, skin cancer, BPH, hypertension no history of collagen vascular disease. No previous radiation therapy. Surgical History: Melanoma of the skin, laminectomy, cervical fusion, lumbar decompression, rotator cuff surgery, cataract surgery history of bronchoscopy (07/15/23) Navigational bronchoscopy/EBUS History of melanoma excision S/P cervical spinal fusion S/P laminectomy with spinal fusion 11/04/16 Dr. Navas S/P rotator cuff repair 1998 X2 Status post lumbar spine surgery for decompression of spinal cord 1980; 1999 Hx of cataract surgery Family History: Mother , 87 Valvular heart disease Failure to thrive in adult Brother Valvular heart disease Torn aortic cusp Cancer Sister Valvular heart disease Father , 80s Cancer Social History: Smoking and tobacco/nicotine status: former use of tobacco/nicotine Quit status (tobacco/nicotine): has quit using Year quit tobacco: 2023 Former quit date comment: 50 years tobacco use Alcohol intake: never Marital status: Current occupational status: retired Current Complaints / Review of Systems: . Vital Signs: Performed on 08/27/2023 9:43 AM BMI - 27.309 kg/m2 (high), Height - 71 in, Weight - 195.8 lbs, Temperature - 96 f, Pulse - 60 /min, Respiration - 18 /min, O2 Sat - 97 %, Pain - 0, Fatigue - 0 and BP - 159/ 91 mm(hg)(high). Physical Exam: General: Patient is in no apparent distress today. He is companied by his daughter and his HEENT: Normocephalic atraumatic. Pupils are equal, sclera clear, extraocular muscles intact. Neck is supple without palpable cervical or supraclavicular adenopathy Pulmonary lungs were clear to auscultation with decreased breath sounds throughout Cardiovascular examination: Regular rate and rhythm Abdomen: Soft and nontender without hepatomegaly Extremities: Without clubbing cyanosis or edema Skin: Warm and dry with several scratches on the back of his hand from his cat Neurological: Alert and orient x 3. Gait speech within normal limits Psych: Affect appropriate for current situation Performance Status: KPS 100 Pathology: Poorly differentiated adenocarcinoma Lab: Imaging: See HPI Impression: Poorly differentiated adenocarcinoma of the lung with positive hilar nodes, adjacent pleural thickening and a near 5 cm primary mass Plan: I reviewed with and his family the findings on the PET scan. They were under the impression that he was a surgical candidate. His daughter had done extensive research and really wanted him to have robotic surgery. They thought that even though he might be be a candidate for open surgery that he would be a candidate for the robotic surgery. I reviewed with them the findings on his scans and how he would not be a surgical candidate secondary to the involved lymph nodes. He also has had a problem with his COPD and his pulmonary function test which have excluded him from surgery as well. We reviewed the typical course of treatment for patient with positive nodes and how typically the treatment starts with combined modality therapy and if appropriate followed by immunotherapy. We reviewed the simulation process. We discussed the risks and side effects of the radiation both acute and long-term. We reviewed the daily treatment regiment. He has been scheduled for port. He will be meeting with Dr. Gillis again to discuss the risks and side effects of the chemotherapy. Initially his and daughter were concerned he was not going to have surgery. They really did not want him to have chemotherapy. We talked about the typical protocols that are used throughout the country and how his treatment would be the same no matter where he was in the [place]. Initially the daughter wanted another opinion. The reminded her that they have already seen and received 3 different opinions. The is also concerned that additional opinions would delay starting treatment. The daughter wanted to obtain new x-rays to see what the growth rate was. I reviewed with her that typically we do not do scans just to measure the growth rate that we know the lung cancer grows quite rapidly and we just try and get treatment started as soon as possible. After the patient had some discussion with his and his reassured him that he should choose what he wants to do not base his treatment somewhat she or her daughter want he is elected to proceed with treatment and he will undergo simulation today so that we will be ready to start his treatments next week coordinating with his chemotherapy. Patient was quite comfortable with his situation and his treatment plan. Signed by: 09/15/2023 9:46:00 AM <<Signature on File>> Time spent with patient:70 CPT Code: CPT Code:
--- NOTE | 2023-09-16 09:42 | ONCRAD TMN_ITS ---
Radiation Oncology Weekly Treatment Management Patient: Channing Carrasco MR#: [id number] : 1945> Attending Physician: Dr. Jennifer Merrill Date of Service: 09/16/2023 Fractions: 6 of 30 with chemotherapy Referring Physician(s) : Dr. Gillis Diagnosis: C34.12 - Malignant neoplasm of upper lobe, left bronchus or lung, Diagnosed 07/15/2023 (Active) Radiotherapy to date: Course: Left Lung 2023, Treatment Site: LT Lung 60Gy, Ref. ID: [id number], Energy: 6X, Dose/Fx (cGy): 200, #Fx: 6 30, Dose Correction (cGy): 0, Total Dose Delivered (cGy): 1,200, Start Date: 09/09/2023, Elapsed Days: 7 Reason for visit: The patient is being seen today as part of their regularly scheduled weekly on treatment visits to assess for acute toxicities from radiotherapy. Review of Systems: Patient has not noticed any changes as yet. His respiratory status remained stable. He is having lab drawn today. He gets chemotherapy today. Vital Signs: Performed on 09/16/2023 9:23 AM BMI - 26.862 kg/m2 (high), Height - 71 in, Weight - 192.6 lbs, Temperature - 96.3 f, Pulse - 74 /min, Respiration - 18 /min, O2 Sat - 91 % (low), Pain - 0, Fatigue - 0 and BP - 156/ 79 mm(hg)(high/). Physical Exam: Patient has had no changes in his physical examination. He is in no apparent distress. Respiratory rate is regular and unlabored Imaging: Radiation therapy imaging related to accurate target localization (i.e. KV, MV and CBCT) was reviewed. Appropriate changes, if any, were made to ensure treatment accuracy. Plan: Will continue with his treatments as planned. He has labs today and chemotherapy today as well. Signed by: Dr. Jennifer Merrill 09/16/2023 9:41:19 AM
[2023-09-16 10:28] LABS: Basophils # 0.1 10^3/uL (0.0-0.1); Basophils % 0.8 %; Eosinophils # 0.2 10^3/uL (0.0-0.8); Eosinophils % 2.6 %; Lymphocytes # 1.5 10^3/uL (0.8-4.8); Lymphocytes % 19.8 %; Mean Corpuscular HGB Conc 33.9 g/dL (30-55); Mean Corpuscular Volume 85.8 fl (82-101); Monocytes # 0.6 10^3/uL (0.2-0.9); Monocytes % 8.2 %; Neutrophils # 5.14 10^3/uL (1.8-7.7); Neutrophils % 68.1 %; Nucleated Red Blood Cells % 0 %; Platelet Count 284 10^3/cmm (157-399); Red Blood Count 5.13 10^6/uL (3.85-5.65); Red Cell Distribution Width 15.5 % (12.1-15.1); White Blood Count 7.56 10^3/uL (3.29-11.43)
[2023-09-16 10:41] LABS: Alanine Aminotransferase 23 U/L (0-41); Albumin Level 3.8 g/dL (3.5-5.2); Alkaline Phosphatase 88 U/L (40-130); Anion Gap 11.7 (5-19); Aspartate Amino Transferase 20 U/L (0-40); Blood Urea Nitrogen 20 mg/dL (8-23); Calcium 9.1 mg/dL (8.5-10.5); Carbon Dioxide 28 mmol/L (22-29); Chloride 101 mmol/L (98-107); Creatinine Clr Calc Pharmacy 89.3098; Globulin 2.8 g/dL (1.3-4.6); Glucose 105 mg/dL (65-115); Osmolality Calculated 287 mOsm/kg (285-295); Potassium 3.7 mmol/L (3.5-5.1); Sodium 137 mmol/L (136-145); Total Bilirubin 0.4 mg/dL (0.15-1.2); Total Protein 6.6 g/dL (6.6-8.7)
[2023-09-16] MEDS: dexamethasone 20 MG in sodium chloride 0.9% 50 ML 188 MG IV (11:48)
[2023-09-16] MEDS: acetaminophen 325 mg Tablet 650 MG PO (11:49)
[2023-09-16] MEDS: sodium chloride 0.9% 250 ML 75 ML IV (11:49)
[2023-09-16] MEDS: famotidine 20 mg/2 mL INJ IVP (11:50)
[2023-09-16] MEDS: diphenhydrAMINE 50 mg/mL SDV 1mL 25 MG IVP (11:55)
[2023-09-16] MEDS: palonosetron 0.25 mg/5 mL SDV IVP (11:57)
[2023-09-16] MEDS: PACLitaxeL 100 MG in sodium chloride 0.9%(non-DEHP) 250 ML 266.670000000000016 MG IV (12:18)
[2023-09-16] MEDS: CARBOplatin 250 MG in sodium chloride 0.9% 500 ML 525 MG IV (13:31)
[2023-09-16 14:50] VITALS: BP 151/78; PULSE 66; RESP 16; TEMP 36.4; O2SAT 98
== END 2023-09-16 23:59 | disposition home or self-care (01) ==
PROVIDERS: Nurse Practitioner Family; PCP Family Medicine; Visit Provider Radiology Radiation Oncology
DX: Z51.0 Encounter for antineoplastic radiation therapy; Z51.11 Encounter for antineoplastic chemotherapy; C34.12 Malignant neoplasm of upper lobe, left bronchus or lung; Z87.891 Personal history of nicotine dependence; Z79.899 Other long term (current) drug therapy; Z53.9 Procedure and treatment not carried out, unspecified reason
CPT/HCPCS: 77300; 77301; 77334; 77338; 77386; 77470; 80053; 85025; 96365; 96367; 96374; 96375; 96413; 96417; 99024; 99204; 99214; 99215; J1100; J1200; J1642; J2469; J3490; J7040; J7050; J9045; J9267

== ENCOUNTER 2023-09-19 10:15 | Oncology outpatient (recurring) (ONCR) | payer MEDICARE, OTHER, SELFPAY | END 2023-09-21 23:59 | disposition home or self-care (01) | PROVIDERS: PCP Family Medicine; Visit Provider Radiology Radiation Oncology | DX: Z51.0 Encounter for antineoplastic radiation therapy (principal); C34.12 Malignant neoplasm of upper lobe, left bronchus or lung; J44.9 Chronic obstructive pulmonary disease, unspecified; Z85.820 Personal history of malignant melanoma of skin; Z87.891 Personal history of nicotine dependence | CPT/HCPCS: 77336; 77386; 99214 ==

== ENCOUNTER 2023-10-06 14:09 | Oncology outpatient (recurring) (ONCR) | payer MEDICARE, OTHER, SELFPAY ==
[2023-09-23 08:19] LABS: Basophils # 0.1 10^3/uL (0.0-0.1); Eosinophils # 0.2 10^3/uL (0.0-0.8); Eosinophils % 2.5 %; Hematocrit 41.7 % (37-53); Lymphocytes % 17.7 %; Mean Corpuscular HGB Conc 33.1 g/dL (30-55); Mean Corpuscular Hemoglobin 28.5 pg (27-33); Mean Corpuscular Volume 86.2 fl (82-101); Mean Platelet Volume 8.9 fL (7.4-10.4); Monocytes # 0.5 10^3/uL (0.2-0.9); Monocytes % 8.8 %; Neutrophils # 4.06 10^3/uL (1.8-7.7); Nucleated Red Blood Cells % 0 %; Platelet Count 254 10^3/cmm (157-399); Red Blood Count 4.84 10^6/uL (3.85-5.65); Red Cell Distribution Width 16.1 % (12.1-15.1); White Blood Count 5.89 10^3/uL (3.29-11.43)
[2023-09-23 08:44] LABS: Alanine Aminotransferase 20 U/L (0-41); Albumin Level 3.7 g/dL (3.5-5.2); Alkaline Phosphatase 103 U/L (40-130); Anion Gap 12.9 (5-19); Aspartate Amino Transferase 18 U/L (0-40); Blood Urea Nitrogen 26 mg/dL (8-23); Calcium 8.9 mg/dL (8.5-10.5); Carbon Dioxide 26 mmol/L (22-29); Chloride 104 mmol/L (98-107); Globulin 2.6 g/dL (1.3-4.6); Glucose 112 mg/dL (65-115); Osmolality Calculated 294 mOsm/kg (285-295); Potassium 3.9 mmol/L (3.5-5.1); Sodium 139 mmol/L (136-145); Total Bilirubin 0.2 mg/dL (0.15-1.2); Total Protein 6.3 g/dL (6.6-8.7)
--- NOTE | 2023-09-23 09:05 | ONCRAD TMN_ITS ---
Radiation Oncology Weekly Treatment Management Patient: Omer Snell MR#: [id number] : 1945> Attending Physician: Dr. Jennifer Merrill Date of Service: 09/23/2023 Fractions: 11 out of 30 with chemotherapy on Tuesdays Referring Physician(s) : Dr. Gillis Diagnosis: C34.12 - Malignant neoplasm of upper lobe, left bronchus or lung, Diagnosed 07/15/2023 (Active) Radiotherapy to date: Course: Left Lung 2023, Treatment Site: LT Lung 60Gy, Ref. ID: [id number], Energy: 6X, Dose/Fx (cGy): 200, #Fx: , Dose Correction (cGy): 0, Total Dose Delivered (cGy): 2,200, Start Date: 09/09/2023, Elapsed Days: 14 Reason for visit: The patient is being seen today as part of their regularly scheduled weekly on treatment visits to assess for acute toxicities from radiotherapy. Review of Systems: Patient is struggling with constipation. He is trying prune juice. He also has had chronic back pain which she has had 4-5 back surgeries. His is concerned that he had some brain fog. Vital Signs: Performed on 09/23/2023 8:35 AM BMI - 27.365 kg/m2 (high), Height - 71 in, Weight - 196.2 lbs, Temperature - 96.4 f, Pulse - 68 /min, Respiration - 18 /min, O2 Sat - 98 %, Pain - 0, Fatigue - 6 and BP - 160/ 79 mm(hg)(high/). Physical Exam: No changes on examination Imaging: Radiation therapy imaging related to accurate target localization (i.e. KV, MV and CBCT) was reviewed. Appropriate changes, if any, were made to ensure treatment accuracy. Plan: At this time we will continue with his treatment as planned. He is not having difficulty swallowing. I have asked him to let the chemo nurses know that he is having some brain fog. They will go over his lab with him. I encouraged him to work on his constipation. Signed by: Dr. Jennifer Merrill 09/23/2023 9:04:45 AM
[2023-09-23] MEDS: acetaminophen 325 mg Tablet 650 MG PO (10:29)
[2023-09-23] MEDS: sodium chloride 0.9% 250 ML 75 ML IV (10:30)
[2023-09-23] MEDS: diphenhydrAMINE 50 mg/mL SDV 1mL 25 MG IVP (10:32)
[2023-09-23] MEDS: palonosetron 0.25 mg/5 mL SDV IVP (10:36)
[2023-09-23] MEDS: famotidine 20 mg/2 mL INJ IVP (10:40)
[2023-09-23] MEDS: dexamethasone 20 MG in sodium chloride 0.9% 50 ML 188 MG IV (10:44)
[2023-09-23] MEDS: [UNRECOGNIZED DRUG - REMARK] 268.329999999999984 MG IV (11:21)
[2023-09-23] MEDS: CARBOplatin 210 MG in sodium chloride 0.9% 500 ML 521 MG IV (12:37)
[2023-09-23 13:47] VITALS: BP 161/81; PULSE 68; O2SAT 94
--- NOTE | 2023-09-30 09:03 | ONCRAD TMN_ITS ---
Radiation Oncology Weekly Treatment Management Patient: Omer Snell MR#: [id number] : 1945 Attending Physician: Dr. Jennifer Merrill Date of Service: 09/30/2023 Fractions: 16 out of 30 with chemotherapy today Referring Physician(s) : Dr. Dunlap Diagnosis: C34.12 - Malignant neoplasm of upper lobe, left bronchus or lung, Diagnosed 07/15/2023 (Active) Radiotherapy to date: Course: Left Lung 2023, Treatment Site: LT Lung 60Gy, Ref. ID: [id number], Energy: 6X, Dose/Fx (cGy): 200, #Fx: 16 / 30, Dose Correction (cGy): 0, Total Dose Delivered (cGy): 3,200, Start Date: 09/09/2023, Elapsed Days: 21 Reason for visit: The patient is being seen today as part of their regularly scheduled weekly on treatment visits to assess for acute toxicities from radiotherapy. Review of Systems: Patient denies any trouble swallowing. His respiratory status is remained stable. His only complaint today is fatigue Vital Signs: Performed on 09/30/2023 8:33 AM BMI - 27.141 kg/m2 (high), Height - 71 in, Weight - 194.6 lbs, Temperature - 97.3 f, Pulse - 69 /min, Respiration - 16 /min, O2 Sat - 97 %, Pain - 0, Fatigue - 4 and BP - 142/ 80 mm(hg)(high/). Physical Exam: No changes on examination Imaging: Radiation therapy imaging related to accurate target localization (i.e. KV, MV and CBCT) was reviewed. Appropriate changes, if any, were made to ensure treatment accuracy. Plan: Will continue with his treatments as planned. He has less than 3 weeks remaining. He will get chemotherapy today. Signed by: Dr. Jennifer Merrill 09/30/2023 9:01:56 AM
[2023-09-30 09:06] LABS: Basophils % 0.7 %; Eosinophils # 0.1 10^3/uL (0.0-0.8); Eosinophils % 1.2 %; Hematocrit 40.9 % (37-53); Lymphocytes # 0.7 10^3/uL (0.8-4.8); Lymphocytes % 13.2 %; Mean Corpuscular Hemoglobin 29.1 pg (27-33); Mean Corpuscular Volume 88.1 fl (82-101); Mean Platelet Volume 8.5 fL (7.4-10.4); Monocytes # 0.6 10^3/uL (0.2-0.9); Monocytes % 9.8 %; Neutrophils # 4.15 10^3/uL (1.8-7.7); Neutrophils % 73.9 %; Nucleated Red Blood Cells % 0 %; Platelet Count 211 10^3/cmm (157-399); Red Blood Count 4.64 10^6/uL (3.85-5.65); Red Cell Distribution Width 16.7 % (12.1-15.1); White Blood Count 5.62 10^3/uL (3.29-11.43)
[2023-09-30 09:18] LABS: Alanine Aminotransferase 35 U/L (0-41); Albumin Level 3.6 g/dL (3.5-5.2); Alkaline Phosphatase 89 U/L (40-130); Anion Gap 11.2 (5-19); Aspartate Amino Transferase 25 U/L (0-40); Blood Urea Nitrogen 24 mg/dL (8-23); Calcium 8.6 mg/dL (8.5-10.5); Carbon Dioxide 27 mmol/L (22-29); Chloride 104 mmol/L (98-107); Creatinine Clr Calc Pharmacy 79.9241; Globulin 2.6 g/dL (1.3-4.6); Glucose 121 mg/dL (65-115); Osmolality Calculated 291 mOsm/kg (285-295); Potassium 4.2 mmol/L (3.5-5.1); Sodium 138 mmol/L (136-145); Total Bilirubin 0.3 mg/dL (0.15-1.2); Total Protein 6.2 g/dL (6.6-8.7)
[2023-09-30] MEDS: sodium chloride 0.9% 250 ML 75 ML IV (10:57)
[2023-09-30] MEDS: acetaminophen 325 mg Tablet 650 MG PO (11:01)
[2023-09-30] MEDS: palonosetron 0.25 mg/5 mL SDV IVP (11:02)
[2023-09-30] MEDS: famotidine 20 mg/2 mL INJ IVP (11:04)
[2023-09-30] MEDS: diphenhydrAMINE 50 mg/mL SDV 1mL 25 MG IVP (11:06)
[2023-09-30] MEDS: dexamethasone 20 MG in sodium chloride 0.9% 50 ML 188 MG IV (11:08)
[2023-09-30] MEDS: PACLitaxeL 100 MG in sodium chloride 0.9%(non-DEHP) 250 ML 266.670000000000016 MG IV (11:38)
[2023-09-30] MEDS: CARBOplatin 220 MG in sodium chloride 0.9% 500 ML 522 MG IV (12:56)
[2023-09-30 14:05] VITALS: BP 132/78; PULSE 74; RESP 18; TEMP 36.4; O2SAT 97
[2023-09-30 14:10] VITALS: BP 151/75; PULSE 67; RESP 18; TEMP 36.6; O2SAT 95
== END 2023-10-06 23:59 | disposition home or self-care (01) ==
PROVIDERS: Internal Medicine Medical Oncology; Nurse Practitioner Family; PCP Family Medicine; Visit Provider Radiology Radiation Oncology
DX: Z51.0 Encounter for antineoplastic radiation therapy (principal); C34.12 Malignant neoplasm of upper lobe, left bronchus or lung
CPT/HCPCS: 77336; 77386; 80053; 85025; 96367; 96368; 96375; 96413; 96417; 99024; 99214; J1100; J1200; J1642; J2469; J3490; J7040; J7050; J7611; J9045; J9267

== ENCOUNTER 2023-10-21 14:36 | Oncology outpatient (recurring) (ONCR) | payer MEDICARE, OTHER, SELFPAY ==
[2023-10-07 10:35] LABS: Basophils # 0.1 10^3/uL (0.0-0.1); Eosinophils % 0.8 %; Hematocrit 40.3 % (37-53); Lymphocytes # 0.7 10^3/uL (0.8-4.8); Lymphocytes % 13.4 %; Mean Corpuscular HGB Conc 33.5 g/dL (30-55); Mean Corpuscular Hemoglobin 29.3 pg (27-33); Mean Corpuscular Volume 87.4 fl (82-101); Mean Platelet Volume 8.5 fL (7.4-10.4); Monocytes # 0.6 10^3/uL (0.2-0.9); Monocytes % 11.1 %; Neutrophils # 3.75 10^3/uL (1.8-7.7); Neutrophils % 72.7 %; Nucleated Red Blood Cells % 0 %; Platelet Count 152 10^3/cmm (157-399); Red Blood Count 4.61 10^6/uL (3.85-5.65); Red Cell Distribution Width 16.6 % (12.1-15.1); White Blood Count 5.15 10^3/uL (3.29-11.43)
[2023-10-07 10:55] LABS: Alanine Aminotransferase 26 U/L (0-41); Albumin Level 3.7 g/dL (3.5-5.2); Alkaline Phosphatase 87 U/L (40-130); Aspartate Amino Transferase 19 U/L (0-40); Blood Urea Nitrogen 19 mg/dL (8-23); Calcium 8.7 mg/dL (8.5-10.5); Carbon Dioxide 26 mmol/L (22-29); Chloride 102 mmol/L (98-107); Globulin 2.9 g/dL (1.3-4.6); Glucose 121 mg/dL (65-115); Osmolality Calculated 288 mOsm/kg (285-295); Sodium 137 mmol/L (136-145); Total Bilirubin 0.3 mg/dL (0.15-1.2); Total Protein 6.6 g/dL (6.6-8.7)
--- NOTE | 2023-10-07 11:34 | ONCRAD TMN_ITS ---
Radiation Oncology Weekly Treatment Management Patient: Channing Carrasco MR#: [id number] : 1945> Attending Physician: Dr. Jennifer Merrill Date of Service: 10/07/2023 Fractions: 21 out of 30 with chemotherapy today Referring Physician(s) : Diagnosis: C34.12 - Malignant neoplasm of upper lobe, left bronchus or lung, Diagnosed 07/15/2023 (Active) Radiotherapy to date: Course: Left Lung 2023, Treatment Site: LT Lung 60Gy, Ref. ID: [id number], Energy: 6X, Dose/Fx (cGy): 200, #Fx: , Dose Correction (cGy): 0, Total Dose Delivered (cGy): 4,200, Start Date: 09/09/2023, Elapsed Days: 28 Reason for visit: The patient is being seen today as part of their regularly scheduled weekly on treatment visits to assess for acute toxicities from radiotherapy. Review of Systems: He has developed a rash on his forearms. Vital Signs: Performed on 10/07/2023 10:54 AM BMI - 26.779 kg/m2 (high), Height - 71 in, Weight - 192 lbs, Temperature - 96.7 f, Pulse - 67 /min, Respiration - 18 /min, O2 Sat - 94 % (low), Pain - 0, Fatigue - 5 and BP - 147/ 85 mm(hg)(high/). Physical Exam: On examination his forearms have red splotches and bruise-like areas. Several of the areas are slightly raised. Imaging: Radiation therapy imaging related to accurate target localization (i.e. KV, MV and CBCT) was reviewed. Appropriate changes, if any, were made to ensure treatment accuracy. Plan: Will continue with treatments as planned. I ask him to show the chemotherapy nurses his arms prior to starting his chemotherapy today. Signed by: Dr. Jennifer Merrill 10/07/2023 11:31:56 AM
[2023-10-07] MEDS: sodium chloride 0.9% 250 ML 75 ML IV (13:23)
[2023-10-07] MEDS: acetaminophen 325 mg Tablet 650 MG PO (13:25)
[2023-10-07] MEDS: palonosetron 0.25 mg/5 mL SDV IVP (13:26)
[2023-10-07] MEDS: famotidine 20 mg/2 mL INJ IVP (13:28)
[2023-10-07] MEDS: diphenhydrAMINE 50 mg/mL SDV 1mL 25 MG IVP (13:31)
[2023-10-07] MEDS: dexamethasone 20 MG in sodium chloride 0.9% 50 ML 188 MG IV (13:58)
[2023-10-07] MEDS: PACLitaxeL 100 MG in sodium chloride 0.9%(non-DEHP) 250 ML 266.670000000000016 MG IV (14:20)
[2023-10-07] MEDS: CARBOplatin 220 MG in sodium chloride 0.9% 500 ML 522 MG IV (15:36)
[2023-10-07 16:17] VITALS: BP 147/77; PULSE 68; RESP 16; TEMP 36.3; O2SAT 95
--- NOTE | 2023-10-13 15:18 | ONCRAD TMN_ITS ---
Radiation Oncology Weekly Treatment Management Patient: Omer Snell MR#: [id number] : 1945> Attending Physician: Dr. Jennifer Merrill Date of Service: 10/13/2023 Fractions: 25 out of 30 with chemotherapy tomorrow Referring Physician(s) : Diagnosis: C34.12 - Malignant neoplasm of upper lobe, left bronchus or lung, Diagnosed 07/15/2023 (Active) Radiotherapy to date: Course: Left Lung 2023, Treatment Site: LT Lung 60Gy, Ref. ID: [id number], Energy: 6X, Dose/Fx (cGy): 200, #Fx: , Dose Correction (cGy): 0, Total Dose Delivered (cGy): 4,800, Start Date: 09/09/2023, Elapsed Days: Reason for visit: The patient is being seen today as part of their regularly scheduled weekly on treatment visits to assess for acute toxicities from radiotherapy. Review of Systems: Patient says he has had a little nausea over the weekend. He is also noticed a little sore throat when he swallows. He is also began to lose his hair. Vital Signs: Performed on 10/13/2023 3:08 PM BMI - 26.556 kg/m2 (high), Height - 71 in, Weight - 190.4 lbs, Temperature - 97 f, Pulse - 83 /min, Respiration - 18 /min, O2 Sat - 97 %, Pain - 0, Fatigue - 5 and BP - 127/ 84 mm(hg). Physical Exam: No changes on exam Imaging: Radiation therapy imaging related to accurate target localization (i.e. KV, MV and CBCT) was reviewed. Appropriate changes, if any, were made to ensure treatment accuracy. Plan: Will continue with his treatments as planned. He will get his chemotherapy tomorrow. Signed by: Dr. Jennifer Merrill 10/13/2023 3:17:00 PM
[2023-10-14 09:27] LABS: Basophils % 0.7 %; Eosinophils # 0.1 10^3/uL (0.0-0.8); Eosinophils % 1.1 %; Hematocrit 39.9 % (37-53); Lymphocytes # 0.6 10^3/uL (0.8-4.8); Lymphocytes % 13.8 %; Mean Corpuscular HGB Conc 33.1 g/dL (30-55); Mean Corpuscular Hemoglobin 29.1 pg (27-33); Mean Corpuscular Volume 88.1 fl (82-101); Mean Platelet Volume 8.3 fL (7.4-10.4); Monocytes # 0.3 10^3/uL (0.2-0.9); Monocytes % 7.8 %; Neutrophils # 3.31 10^3/uL (1.8-7.7); Neutrophils % 75.9 %; Nucleated Red Blood Cells % 0 %; Platelet Count 162 10^3/cmm (157-399); Red Blood Count 4.53 10^6/uL (3.85-5.65); Red Cell Distribution Width 17.2 % (12.1-15.1); White Blood Count 4.36 10^3/uL (3.29-11.43)
[2023-10-14 09:49] LABS: Alanine Aminotransferase 24 U/L (0-41); Albumin Level 3.7 g/dL (3.5-5.2); Alkaline Phosphatase 82 U/L (40-130); Anion Gap 12.8 (5-19); Aspartate Amino Transferase 20 U/L (0-40); Blood Urea Nitrogen 27 mg/dL (8-23); Calcium 8.8 mg/dL (8.5-10.5); Carbon Dioxide 27 mmol/L (22-29); Chloride 102 mmol/L (98-107); Globulin 2.8 g/dL (1.3-4.6); Glucose 108 mg/dL (65-115); Osmolality Calculated 292 mOsm/kg (285-295); Potassium 3.8 mmol/L (3.5-5.1); Sodium 138 mmol/L (136-145); Total Bilirubin 0.4 mg/dL (0.15-1.2); Total Protein 6.5 g/dL (6.6-8.7)
[2023-10-14] MEDS: sodium chloride 0.9% 250 ML 75 ML IV (11:53)
[2023-10-14] MEDS: acetaminophen 325 mg Tablet 650 MG PO (11:56)
[2023-10-14] MEDS: famotidine 20 mg/2 mL INJ IVP (11:56)
[2023-10-14] MEDS: diphenhydrAMINE 50 mg/mL SDV 1mL 25 MG IVP (11:58)
[2023-10-14] MEDS: palonosetron 0.25 mg/5 mL SDV IVP (12:00)
[2023-10-14] MEDS: dexamethasone 20 MG in sodium chloride 0.9% 50 ML 188 MG IV (12:00)
[2023-10-14] MEDS: PACLitaxeL 100 MG in sodium chloride 0.9%(non-DEHP) 250 ML 266.670000000000016 MG IV (12:28)
[2023-10-14] MEDS: CARBOplatin 200 MG in sodium chloride 0.9% 500 ML 520 MG IV (13:35)
[2023-10-14 14:35] VITALS: BP 151/82; PULSE 64; RESP 17; TEMP 36.6; O2SAT 95
--- NOTE | 2023-10-25 23:09 | N.ONRD TS_ITS ---
Radiation Oncology Treatment Summary Patient: Omer Snell MR#: [id number] : 1945 Age: 78 Sex: Male Dictated by: David Conteh Date of Service: 10/21/2023 Referring Physician(s) : Diagnosis: C34.12 - Malignant neoplasm of upper lobe, left bronchus or lung, Diagnosed 07/15/2023 (Active) Radiotherapy to Date: Course: Left Lung 2023, Treatment Site: LT Lung 60Gy, Ref. ID: [id number], Energy: 6X, Dose/Fx (cGy): 200, #Fx: , Dose Correction (cGy): 0, Total Dose Delivered (cGy): 6,000, Start Date: 09/09/2023, End Date: 10/21/2023, Elapsed Days: 42 Clinical Summary: The patient tolerated RT well. He had some nausea from chemo. Modest sore throat. Plan: End of treatment today. He will continue with follow-up with med onc along with evaluation for ongoing systemic treatment. Follow up in one month. Signed by: David Conteh>10/25/2023 11:07:58 PM <<Signature on File>>
== END 2023-10-21 23:59 | disposition home or self-care (01) ==
PROVIDERS: Nurse Practitioner Family; PCP Family Medicine; Visit Provider Radiology Radiation Oncology
DX: Z51.0 Encounter for antineoplastic radiation therapy (principal); C34.12 Malignant neoplasm of upper lobe, left bronchus or lung
CPT/HCPCS: 77336; 77386; 80053; 85025; 96367; 96375; 96413; 96417; 99024; 99214; J1100; J1200; J2469; J3490; J7040; J7050; J9045; J9267

== ENCOUNTER → 2023-10-30 11:01 | Outpatient (BNVA) | payer MEDICARE, OTHER, SELFPAY | PROVIDERS: PCP Family Medicine; Visit Provider Internal Medicine Pulmonary Disease | DX: C34.12 Malignant neoplasm of upper lobe, left bronchus or lung (principal); J44.9 Chronic obstructive pulmonary disease, unspecified; M25.551 Pain in right hip; Z87.891 Personal history of nicotine dependence | CPT/HCPCS: 99214 ==

== ENCOUNTER 2023-10-30 11:56 | Emergency (ER) | payer MEDICARE, OTHER, SELFPAY ==
[2023-10-30 12:03] VITALS: BP 138/73; PULSE 62; RESP 16; TEMP 36.6; O2SAT 97; BMI 26.7
[2023-10-30 12:09] VITALS: BP 138/73; PULSE 62; RESP 18; O2SAT 97
--- NOTE | 2023-10-30 12:14 | XR_ITS ---
WS: [id number] Lumbar spine, 3 views, 10/30/2023 Clinical Data: injury Comparison: Lumbar spine, 11/04/2016 Findings: There is a posterior lumbar fusion from L4-S1 with bilateral pedicle screws and connecting rods. Ther e are artificial disks at L4-L5 and L5-S1. There is 0.6 cm anterior subluxation of L3 on L4 with dege nerative disc narrowing. There is minimal anterior spurring of all the lumbar vertebral bodies. There are laminectomy changes at L4 and L5. There is a large amount of fecal material throughout the colon. XR/XR lumbar spine 2-3V* [id number] Impression: 1. Posterior lumbar fusion L4-S1. 2. 0.6 cm anterior subluxation of L3 on L4 with degenerative disc narrowing. 3. 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
--- NOTE | 2023-10-30 12:14 | XR_ITS ---
WS: [id number] Right hip, 2 views, AP pelvis, 10/30/2023 Clinical Data: injury Comparison: None. Findings: No fractures or dislocations are seen. Both hips show no fractures. The hips show no arthritic change . The SI joints and pubic symphysis are unremarkable. The soft tissues are not remarkable. The adjace nt pelvis is normal. There is a posterior lumbosacral fusion L4-S1. XR/XR hip RT 2-3V wo/w pel* [id number] Impression: 1. Negative bilateral hips. 2. Posterior lumbosacral fusion L4-S1.
--- NOTE | 2023-10-30 12:20 | W.ED.FALL ---
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 States he went to [facility] has been on hydrocodone but states he is still having pain mainly in his right hip lower hip radiating down his leg. He denies much back pain currently is improved with rest worse with movement. Denies any bowel or bladder incontinence Associated symptoms-after fall: Denies abdominal pain, chest pain, headache(s) or neck pain Review of Systems Const: Denies: fever(s), chills, body aches or change in appetite ENMT: Denies: throat pain or dental pain Card: Denies: chest pain Resp: Denies: dyspnea GI: Denies: abdominal pain, nausea, vomiting or diarrhea Musc: Reports: back pain; Denies: neck pain Skin/Breast: Denies: rash Neuro: Denies: headache(s) [facility] ED PFSH: Medical History GERD (gastroesophageal reflux disease) Degenerative joint disease of spine Hyperlipidemia COPD (chronic obstructive pulmonary disease) Collapse of left lung H/o collapsed lung years ago and needed Pleurodesis Elevated PSA History of CVA (cerebrovascular accident) Skin cancer 5-FU cream used - on face Palpitation BPH loc w urin obs/LUTS HTN (hypertension) Surgical History History of bronchoscopy (07/15/23) Navigational bronchoscopy/EBUS History of melanoma excision S/P cervical spinal fusion S/P laminectomy with spinal fusion 11/04/16 Dr. Navas S/P rotator cuff repair 1998 X2 Status post lumbar spine surgery for decompression of spinal cord 1980; 1999 Hx of cataract surgery Family History Mother , 87 Valvular heart disease Failure to thrive in adult Brother Valvular heart disease Torn aortic cusp Cancer Sister Valvular heart disease Father , 80s Cancer Social History Smoking and tobacco/nicotine status: former use of tobacco/nicotine Quit status (tobacco/nicotine): has quit using Year quit tobacco: 2023 Former quit date comment: 50 years tobacco use Alcohol intake: never Marital status: Current occupational status: retired Physical Exam Const: COMMON NORMALS: no acute distress, patient oriented x3 and healthy appearing HENMT: COMMON NORMALS: normocephalic and atraumatic HEAD & SCALP: normocephalic and atraumatic Eye: COMMON NORMALS: conjunctivae normal CONJUNCTIVA: Yes conjunctivae normal Neck/C-Spine: COMMON NORMALS: full ROM and supple Chest: COMMONS NORMALS: normal inspection of the chest and normal palpation of entire chest wall Resp: COMMON NORMALS: normal respiratory effort Back/Pelvis: OTHER: Tenderness over right lower back and hip no obvious deformity no saddle anesthesia Extremity: COMMON NORMALS: normal to inspection and full ROM Neuro: COMMON NORMALS: patient oriented x3, moves all extremities and no focal motor deficits Psych: COMMON NORMALS: mental status grossly normal, Normal thought process present and cooperative THOUGHT PROCESS: Normal thought process present Skin: COMMON NORMALS: no rashes or lesions noted and no wounds GENERAL SKIN EXAM: no rashes or lesions noted Course Vital Signs: Vital signs: Vital Signs Temperature 97.8 F 10/30/23 12:03 Pulse Rate 62 10/30/23 12:09 Respiratory Rate 18 10/30/23 12:09 Blood Pressure 138/73 10/30/23 12:09 Pulse Oximetry 97 10/30/23 12:09 Oxygen Delivery Me thod Room Air 10/30/23 12:09 MDM - Fall Medical Decision Making Patient presents here with low back pain with pain down the right side consistent with sciatica he has no signs of cord compression or epidural abscess his pain is improved here we will place him on Naprosyn Robaxin and steroid he is to follow-up with PCP next week return if worsening he understands agrees to plan Medical Records I reviewed the patient's medical records. Lab Data Radiology Impressions Hip/Pelvis X-Ray 10/30/23 12:14 Impression: 1. Negative bilateral hips. 2. Posterior lumbosacral fusion L4-S1. Lumbar Spine X-Ray 10/30/23 12:14 Impression: 1. Posterior lumbar fusion L4-S1. 2. 0.6 cm anterior subluxation of L3 on L4 with degenerative disc narrowing. 3. 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 All radiology interpretation(s) finalized by discharge Discharge Plan Discharge Patient Disposition: Home Clinical Impression: Low back pain Qualifiers: Chronicity: acute Back pain laterality: right Sciatica presence: with sciatica Sciatica laterality: sciatica of right side Qualified Code(s): M54.41 - Lumbago with sciatica, right side Condition: Stable Prescriptions: New methocarbamol 750 mg tablet 750 mg PO Q6H PRN (Reason: spasms) Qty: 20 0RF prednisone 50 mg tablet 50 mg PO DAILY Qty: 5 0RF Naprosyn 500 mg tablet 500 mg PO BID PRN (Reason: pain) Qty: 20 0RF No Action multivitamin Tablet 1 tab PO DAILY xnorbsys-imyj-jtbnt-oreg-capry 100 mg-150 mg- 50 mg-150 mg capsule 1 cap PO DAILY magnesium oxide 200 mg magnesium tablet 250 mg PO DAILY Galzin 50 mg (zinc) capsule 50 mg PO DAILY ascorbic acid (vitamin C) 1,000 mg tablet 1,000 mg PO DAILY omega-3 fatty acids-fish oil [Fish Oil] 360-1,200 mg capsule 2 cap PO DAILY saw palmetto 450 mg capsule 900 mg PO DAILY Rx Instructions: give with food (meal/snack) famotidine 20 mg tablet 20 mg PO BID Qty: 60 1RF cholecalciferol (vitamin D3) 50 mcg (2,000 unit) capsule 50 mcg PO DAILY glucosamine HCl 500 mg tablet 500 mg PO BID Rx Instructions: administer with meals Spiriva Respimat 1.25 mcg/actuation mist 2 puff inhalation DAILY lorazepam 1 mg tablet 0.5 - 1 mg PO Q6H PRN (Reason: Severe Nausea) Qty: 30 3RF hydrochlorothiazide 25 mg tablet 25 mg PO QAM Qty: 90 3RF Ventolin HFA 90 mcg/actuation HFA aerosol inhaler 2 inh inhalation Q8H PRN (Reason: shortness of breath or wheezing) Qty: 8.5 3RF potassium gluconate 595 mg (99 mg) tablet 99 mg PO BID prochlorperazine maleate [Compazine] 10 mg tablet 10 mg PO Q4H PRN (Reason: Mild Nausea) Qty: 30 3RF lovastatin 40 mg tablet 40 mg PO BEDTIME Rx Instructions: TAKE 1 TABLET BY MOUTH AT BEDTIME omeprazole 20 mg capsule,delayed release(DR/EC) 20 mg PO BID Rx Instructions: Take 1 capsule by mouth twice daily hydrocodone-acetaminophen 7.5-325 mg tablet 1 tab PO Q6H PRN (Reason: pain) Qty: 10 0RF Colace 100 mg capsule 100 mg PO BID Qty: 14 0RF Discharge Orders: Discharge ED (Routine); Ordered 10/30/23 Ordered By: Elmer Stallworth Referrals: Clint Christina MD [Primary Care Provider] - 4-7 days Discharge Diet: Advance as tolerated Discharge Activity: Resume usual activity Patient Instructions: Sciatica (ED), Back Pain (ED) Coding Level of Care Code ED Cigarette Tipper for Beatrice Tabares
[2023-10-30] MEDS: ketorolac 30 mg/mL INJ IM (12:23)
[2023-10-30] MEDS: morphine 4 mg/mL SDV 1 mL IM (12:23)
[2023-10-30] MEDS: methocarbamol 750 mg Tablet 1500 MG PO (12:23)
[2023-10-30] MEDS: dexamethasone 10 mg/mL INJ IM (12:23)
[2023-10-30 13:19] VITALS: PULSE 70; RESP 16; O2SAT 95
== END 2023-10-30 13:20 | disposition home or self-care (01) ==
PROVIDERS: Emergency Provider Emergency Medicine; PCP Family Medicine
DX: M54.41 Lumbago with sciatica, right side (principal); Z87.891 Personal history of nicotine dependence; E78.5 Hyperlipidemia, unspecified; J44.9 Chronic obstructive pulmonary disease, unspecified; Z86.73 Personal history of transient ischemic attack (TIA), and cerebral infarction without residual deficits; I10 Essential (primary) hypertension
CPT/HCPCS: 72100; 73502; 96372; 99284; J1100; J1885; J2270

== ENCOUNTER 2023-11-20 13:41 | Oncology outpatient (recurring) (ONCR) | payer MEDICARE, OTHER, SELFPAY ==
--- NOTE | 2023-11-24 09:16 | ONCRAD EPV_ITS ---
Radiation Oncology Established Patient Visit Patient: Omer Snell [id number] : 1945 Age: 78 Sex: Male Dictated by: Dr. 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 ID: [id number] Energy: 6X, Dose/Fx (cGy): 200, #Fx: , Dose Correction (cGy): 0, Total Dose Delivered (cGy): 6,000, Start Date: 09/09/2023, End Date: 10/21/2023, Elapsed Days: 42 Current History: Patient returns today for his 1 month checkup after undergoing SBRT to the left lung. He has been feeling fairly well. He does have a cough which is productive of white or clear sputum which has not changed. His appetite is good. He has had no trouble breathing. He did go to the ER but this was because he fell off a ladder. Current Medications: Allergies: Current Complaints / Review of Systems: . Vital Signs: Performed on 11/20/2023 1:59 PM BMI - 27.95 kg/m2 (high), Height - 71 in, Weight - 200.4 lbs, Temperature - 97.8 f, Pulse - 69 /min, Respiration - 16 /min, O2 Sat - 97 %, Pain - 0, Fatigue - 6 and BP - 152/ 84 mm(hg)(high/). Physical Exam: General: Patient is in no apparent distress today. He is companied by his . HEENT: Normocephalic atraumatic. Pupils are equal, sclera clear, extraocular muscles intact. LUNGS: Respiratory rate is regular nonlabored. HEART: Regular rate and rhythm, ABDOMEN: Fairly flat and nontender EXTREMITIES no clubbing cyanosis or edema noted. NEUROLOGIC: Alert and orient x 3. Gait and speech within normal limits. Performance Status: 100 Lab: None pending. Pathology: Primary, c34.12 - malignant neoplasm of upper lobe, left bronchus or lung, Diagnosed 07/15/2023 (active) . Imaging: See HPI Impression: Left-sided lung cancer status post SBRT Plan: This point we talked about following up with a serial scan subsequently. Both he and his have requested a PET scan. I told him we will be able to put that through but it may not be covered by insurance. If it is not we can go down to a CT scan of his chest. Will get this scheduled in the next 6 to 8 weeks. Signed by: 11/24/2023 9:15:40 AM <<Signature on File>> Time spent with patient:20 CPT Code: CPT Code:
== END 2023-11-21 23:59 | disposition home or self-care (01) ==
LOC: ONCMED 13:41
PROVIDERS: PCP Family Medicine; Visit Provider Radiology Radiation Oncology
DX: Z51.0 Encounter for antineoplastic radiation therapy (principal); C34.12 Malignant neoplasm of upper lobe, left bronchus or lung; R05.9 Cough, unspecified
CPT/HCPCS: 99024

== ENCOUNTER 2023-12-02 09:52 | Outpatient (CLI) | payer MEDICARE, OTHER, SELFPAY ==
--- NOTE | 2023-12-02 10:00 | PETR_ITS ---
PROCEDURE INFORMATION: Exam: PET/CT Skull Base to Mid-thigh Exam date and time: 12/02/2023 10:22 AM Age: 78 years old Clinical indication: Condition or disease; Primary cancer: Lung cancer; Follow-up oncological assessment; Additional info: L lung sp sbrt LABS AND CLINICAL REPORTS: Glucose: 137 mg/dl Treatment strategy for malignancy (PET staging): Restaging (PS) TECHNIQUE: Imaging protocol: Following at least four-hour fasting and following the injection of radiopharmaceutical, low dose CT images were obtained. Then, PET images were obtained. Attenuation corrected images were constructed using the CT scan. Fused images of PET and CT were reviewed. The standardized uptake values (SUV) reported below are maximum values within a region of interest, expressed in gm/ml. Exam includes orbital meatal line to mid-thigh. Radiopharmaceutical: 13.35 mCi F-18 FDG (Fluorodeoxyglucose), IV. Time of imaging post radiopharmaceutical administration: 1 hour COMPARISON: PT PET [facility] INITIAL [id number] 08/05/2023 11:19 AM FINDINGS: Brain: Visualized brain has normal physiologic uptake. Pharynx: No abnormal uptake. Larynx: No abnormal uptake. Lungs, pleura and trachea: Decreased FDG uptake associated with the treated left upper lobe mass, now with SUV max 1.8, previously 10.2. This now measures approximately 1.6 x 1.2 cm. Moderate centrilobular emphysema. Previously noted right lower lobe pulmonary nodules are no longer seen. Heart: Normal physiologic uptake. Mediastinal space: No abnormal uptake. Liver: No abnormal uptake. Gallbladder and bile ducts: Cholelithiasis. Pancreas: No abnormal uptake. Spleen: No abnormal uptake. Adrenal glands: No abnormal uptake. Kidneys and ureters: Right renal cyst. Stomach and bowel: Duodenal diverticulum. No bowel obstruction. Colonic diverticulosis without evidence of diverticulitis. Reproductive: Prostatomegaly. Vasculature: No abnormal uptake. Lymph nodes: Interval resolution of hypermetabolic left hilar lymphadenopathy. Skeleton: Lumbar spinal fixation hardware. Soft tissues: Small fat containing umbilical hernia. PET/PET [facility] SUBSEQ [id number] IMPRESSION: Interval response to therapy with decreased size and FDG uptake of the treated left upper lobe mass. Interval resolution of hypermetabolic left hilar lymphadenopathy.
== END 2023-12-02 09:53 | disposition home or self-care (01) ==
LOC: RAD 09:52
PROVIDERS: PCP Family Medicine; Visit Provider Radiology Radiation Oncology
DX: C34.12 Malignant neoplasm of upper lobe, left bronchus or lung (principal); J43.2 Centrilobular emphysema; K80.20 Calculus of gallbladder without cholecystitis without obstruction; N28.1 Cyst of kidney, acquired; K57.10 Diverticulosis of small intestine without perforation or abscess without bleeding; R59.1 Generalized enlarged lymph nodes; K42.9 Umbilical hernia without obstruction or gangrene
CPT/HCPCS: 78815; A9552

== ENCOUNTER 2024-01-07 09:30 | Oncology outpatient (recurring) (ONCR) | payer MEDICARE, OTHER, SELFPAY ==
--- NOTE | 2024-01-07 09:30 | MR_ITS ---
WS: [id number] MRI LUMBAR SPINE WITHOUT CONTRAST HISTORY: Lumbar radiculopathy, numerous prior lumbar surgeries. COMPARISON: 04/25/2016 TECHNIQUE: Sagittal and axial multisequence imaging is submitted. Increase in the cervical lordosis. Cervical stenosis at C4-5. Suspect myelomalacia in the cervical co rd. This can be better evaluated on a dedicated cervical spine MRI. Prior posterior L4-S1 fusion. There is an interbody disc spacer at L4-5 and L5-S1. Fusion appears com plete. There is a small amount of marrow edema in the adjacent endplates of L3 and L4 which is new. A lso new is L3 anterolisthesis by 7.3 mm. Disc spaces are all narrowed and desiccated. Conus terminates normally at L1-2 disc level. L1-L2: Mild annular disc bulging with ligamentum flavum and facet arthritis. Moderate bilateral claude inal stenosis. L2-L3: Diffuse annular disc bulging with ligamentum flavum and facet arthritis. Severe central with b ilateral subarticular recess and moderate to severe foraminal stenosis. Similar to the prior study. L3-L4: Severe central, bilateral subarticular recess and foraminal stenosis due to combination of dis c and facet disease and the anterolisthesis of L3. Progression of stenoses since the prior exam. Ther e is significant disc contact on the L3 and L4 nerve roots, bilateral. L4-L5: Diffuse mild osteophytic ridging. RIGHT laminectomy defect. Patent thecal sac. At least mild b ilateral foraminal stenosis. L5-S1: Mild osteophytic ridging. Patent thecal sac with RIGHT hemilaminectomy defect. At least modera te foraminal stenosis. Similar to the prior study. Bilateral renal cysts. MR/MR lumbar spine wo con* [id number] IMPRESSION: 1. Status post posterior lumbar fusion from L4-S1 with interbody spacers at L4 -5 and L5-S1, stable. 2. Progression of L3 anterolisthesis to 7.3 mm. 3. L3-4: Severe central, bilateral subarticular recess and foraminal stenosis is multifactorial as described above. Progression of stenosis since 2016. 4. L2-3: Severe central with bilateral subarticular recess and moderate to sev ere foraminal stenosis. Similar to the prior study. 5. L1-2: Moderate bilateral foraminal stenosis, unchanged. 6. Cervical stenosis seen on the localizer at C4-5 with myelomalacia.
== END 2024-01-21 23:59 | disposition home or self-care (01) ==
LOC: RAD 13:30 → ONCMED 01-19 11:32
PROVIDERS: PCP Family Medicine; Visit Provider Family Medicine
DX: M48.061 Spinal stenosis, lumbar region without neurogenic claudication (principal); M54.16 Radiculopathy, lumbar region; M48.02 Spinal stenosis, cervical region; Z98.1 Arthrodesis status
CPT/HCPCS: 72148

== ENCOUNTER → 2024-02-05 14:37 | Outpatient (BNVA) | payer MEDICARE, OTHER, SELFPAY | PROVIDERS: PCP Family Medicine; Visit Provider Orthopaedic Surgery | DX: M48.062 Spinal stenosis, lumbar region with neurogenic claudication (principal); Z98.1 Arthrodesis status | CPT/HCPCS: 36415; 72110; 80053; 81003; 81015; 85025; 99204 ==

== ENCOUNTER → 2024-02-20 10:12 | Outpatient (BNVA) | payer MEDICARE, OTHER, SELFPAY | PROVIDERS: PCP Family Medicine; Visit Provider Family Medicine | DX: Z01.818 Encounter for other preprocedural examination (principal); I49.8 Other specified cardiac arrhythmias | CPT/HCPCS: 93005 ==

== ENCOUNTER 2024-03-03 09:29 | Day surgery (SDC) | payer MEDICARE, OTHER, SELFPAY ==
[2024-03-03] VITALS (13 sets, daily range): BP systolic 134–179; BP diastolic 70–101; PULSE 59–94; RESP 16–20; TEMP 35.8–36.6; O2SAT 92–99; BMI 26.4
[2024-03-03] MEDS: sodium chloride 0.9% 1,000 ML 30 ML IV (11:16)
[2024-03-03 11:33] LABS: Anion Gap 13.9 (5-19); Blood Urea Nitrogen 23 mg/dL (8-23); Calcium 8.7 mg/dL (8.5-10.5); Carbon Dioxide 29 mmol/L (22-29); Chloride 103 mmol/L (98-107); Creatinine Clr Calc Pharmacy 78.6698; Glucose 102 mg/dL (65-115); Osmolality Calculated 298 mOsm/kg (285-295); Potassium 3.9 mmol/L (3.5-5.1); Sodium 142 mmol/L (136-145)
--- NOTE | 2024-03-03 11:52 | W.PM.OPSUD ---
Surgery/Procedure H&P Update DATE OF PROCEDURE: March 03, 2024 DATE H&P PERFORMED: 02/20/24 H&P UPDATE INFORMATION: I have reviewed H&P completed within last 30 days, I have examined patient prior to procedure and No changes to prior documentation PREOP DIAGNOSIS: Lumbar stenosis with neurogenic claudication PLANNED PROCEDURE: Operation Date: 03/03/24 11:20 Proposed Procedures p Lumbar Spine Decompression Lumbar Decompression(Not Applicable) - Reilly Morales DO
[2024-03-03] MEDS: ceFAZolin 2,000 mg SDV 2000 MG IVP (12:09)
[2024-03-03] MEDS: lidocaine-epi 1% 20 mL INJ INJECTION (13:07)
--- NOTE | 2024-03-03 14:19 | XR_ITS ---
WS: [id number] XR lumbar spine 2-3V* [id number] REASON FOR EXAM: or pic, decompression FINDINGS: Surgical instrument overlying the right L3-L4 interspace. Previous posterior lumbar fusion L4-S1. XR/XR lumbar spine 2-3V* [id number] IMPRESSION: Lumbar localization and surgery as above.
--- NOTE | 2024-03-03 14:31 | PM.OP ---
Operative Report Date of procedure: March 03, 2024 Pre-op diagnosis: Lumbar stenosis with neurogenic claudication Post-op diagnosis: same Procedure done: 1. L2-3 laminectomy with partial facetectomy 2. L3-4 laminectomy with partial facetectomy Surgeon: Reilly Morales DO Estimated blood loss (mL): 10 Procedure: 1. L2-3 laminectomy with partial facetectomy 2. L3-4 laminectomy with partial facetectomy Patient is brought to the operative suite. After undergoing anesthesia they are placed in the prone position. All areas of impingement are well padded. Patient is then prepped and draped in the normal sterile fashion. A skin incision is made over the L2/3 level. This is confirmed under c-arm guidance. A series of dilators are passed and the tubular retractor is docked on the L2 lamina. A bovie is used to clear the soft tissue off the lamina and the L 2/3 facet joint. A high speed james is then used to perform the laminectomy and take down the medial aspect of the L 2/3 facet joint. A kerrison rongeure was then used to take down the remaining lamina and smooth the edge of the laminectomy up to the point where the ligamentum flavum attaches. Attention was then brought to the medial aspect of the facet joint. The remaining medial aspect of the superior and inferior aspect of the facet joint were taken down with the kerrison from the pedicle of L2 to L 3. The facet joint had significant hypertrophy. Attention was then brought to the Ligamentum Flavum. The ligament was taken down from the lamina of L2 to L3 and out medially to the remaining facet joint. The ligament was thick. The dura was then exposed. The dura was in good repair. The L2 nerve was then traced with a curette out the L2/3 foramen and found to be adequately decompressed. The L3 nerve was traced with a curette around the L3 pedicle. The lateral recess was opened with a kerrison helping to further decompress the L3 nerve. Wound is then irrigated copiously with saline and surgiflo is used to stop any bleeding. The tubular retractor is removed and the A skin incision is made over the L3/4 level. This is confirmed under c-arm guidance. A series of dilators are passed and the tubular retractor is docked on the L3 lamina. A bovie is used to clear the soft tissue off the lamina and the L 3/4 facet joint. A high speed james is then used to perform the laminectomy and take down the medial aspect of the L 3/4 facet joint. A kerrison rongeure was then used to take down the remaining lamina and smooth the edge of the laminectomy up to the point where the ligamentum flavum attaches. Attention was then brought to the medial aspect of the facet joint. The remaining medial aspect of the superior and inferior aspect of the facet joint were taken down with the kerrison from the pedicle of L3 to L 4. The facet joint had significant hypertrophy. Attention was then brought to the Ligamentum Flavum. The ligament was taken down from the lamina of L3 to L4 and out medially to the remaining facet joint. The ligament was thick. The dura was then exposed. The dura was in good repair. The L3 nerve was then traced with a curette out the L3/4 foramen and found to be adequately decompressed. The L4 nerve was traced with a curette around the L4 pedicle. The lateral recess was opened with a kerrison helping to further decompress the L4 nerve. Wound is then irrigated copiously with saline and surgiflo is used to stop any bleeding. The tubular retractor is removed and the wound is closed with vicryl and monocryl suture. Glue is then used to protect the wound. A sterile dressing is then placed. Patient was then placed in the supine position and transferred to the PACU in stable condition.
--- NOTE | 2024-03-03 15:07 | SUR.PHASEII ---
15:05 INDIRECT HEATED AIR APPLIED TO PATIENT.
[2024-03-03] MEDS: ketorolac 30 mg/mL INJ 15 MG IVP (16:12)
--- NOTE | 2024-03-03 16:30 | ANE.PACU2 ---
Inpatient post-anesthesia follow up: Airway intact: Yes Vital signs: Temperature 97.9 F Pulse Rate 59 Respiratory Rate 16 Blood Pressure 156/83 Pulse Oximetry 97 Oxygen Delivery Me thod Room Air Oxygen Flow Rate Fraction of Inspir ed Oxygen Hydration adequate: Yes Nausea and vomiting: No Pain level: 1 Mental status: Baseline
--- NOTE | 2024-03-03 16:30 | SUR.PHASEII ---
16:15 ROM AND SENSATION IN ALL 4 EXTREMITIES.MEDICATED FOR MILD PAIN.
--- NOTE | 2024-03-03 16:35 | SUR.PHASEII ---
16:25 DRESSING DRY AND INTACT.
== END 2024-03-03 16:30 | disposition home or self-care (01) ==
PROVIDERS: Anesthesiology; PCP Family Medicine; Visit Provider Orthopaedic Surgery
PROC: (CPT 63005; principal; 2024-03-03 11:00)
DX: M48.062 Spinal stenosis, lumbar region with neurogenic claudication (principal)
CPT/HCPCS: 63047; 63048; 72100; 76000; 80048; J0690; J1100; J1885; J2405; J2704; J3010; J3490; J7030

== ENCOUNTER → 2024-03-23 07:57 | Outpatient (BNVA) | payer MEDICARE, OTHER, SELFPAY | PROVIDERS: PCP Family Medicine; Visit Provider Orthopaedic Surgery | DX: Z98.890 Other specified postprocedural states (principal) | CPT/HCPCS: 99024 ==

== ENCOUNTER → 2024-04-20 08:49 | Outpatient (BNVA) | payer MEDICARE, OTHER, SELFPAY | PROVIDERS: PCP Family Medicine; Visit Provider Orthopaedic Surgery | DX: Z98.890 Other specified postprocedural states (principal) | CPT/HCPCS: 99024 ==

== ENCOUNTER → 2024-05-26 10:47 | Outpatient (BNVA) | payer MEDICARE, OTHER, SELFPAY | PROVIDERS: PCP Family Medicine; Visit Provider Family Medicine | DX: E55.9 Vitamin D deficiency, unspecified (principal); Z51.81 Encounter for therapeutic drug level monitoring; E11.9 Type 2 diabetes mellitus without complications; I63.9 Cerebral infarction, unspecified; Z13.220 Encounter for screening for lipoid disorders; N40.1 Benign prostatic hyperplasia with lower urinary tract symptoms; E53.8 Deficiency of other specified B group vitamins | CPT/HCPCS: 80053; 80061; 82306; 82607; 83036; 83735; 84153; 85025 ==

== ENCOUNTER → 2024-06-01 08:50 | Outpatient (BNVA) | payer MEDICARE, OTHER, SELFPAY | PROVIDERS: PCP Family Medicine; Visit Provider Orthopaedic Surgery | DX: M54.9 Dorsalgia, unspecified (principal); M48.062 Spinal stenosis, lumbar region with neurogenic claudication | CPT/HCPCS: 99024 ==

== ENCOUNTER 2024-06-03 10:39 | Oncology outpatient (recurring) (ONCR) | payer MEDICARE, OTHER, SELFPAY ==
--- NOTE | 2024-06-03 11:00 | MR_ITS ---
WS: [id number] MRI LUMBAR SPINE NONCONTRAST TECHNIQUE: Sagittal T1, T2 and STIR imaging. Axial T1 and T2 imaging. CLINICAL INFORMATION: Back pain COMPARISON: MRI 01/07/2024 FINDINGS: Mild lumbar curve. No acute compression. Prior pedicle screw fixation L4-S1 with interbody fusion gra fts. Grade 1 anterolisthesis L3 on L4. Hemilaminectomy defects L2-L3 and L3-L4. Persistent narrowing of the thecal sac L2-L3 and L3-L4. L1-L2: Slight retrolisthesis L1-2. Narrowing of the subarticular recess bilaterally. Moderate facet a rthropathy. Mild bilateral foraminal narrowing. L2-L3: Moderate central canal stenosis with impingement subarticular recess bilaterally. Central prot rusion. Moderate facet arthropathy. Hemilaminectomy defects. L3-L4: Grade 1 anterolisthesis is stable with severe central canal stenosis. Central disc bulging wit h advanced facet arthropathy and ligamentum flavum hypertrophy. Hemilaminectomy defects. Severe bilat eral foraminal narrowing. L4-L5: Pedicle screw fixation. Laminectomy defects. Mild RIGHT and no significant LEFT foraminal narr owing. Moderate facet arthropathy. L5-S1: Pedicle screw fixation with interbody fusion. Spinal canal and foramen are patent. Moderate fa cet arthropathy. Small bilateral renal cysts. Partially visualized cholelithiasis. Visualized pelvic bony structures: Normal. Paravertebral soft tissues: Normal. MR/MR lumbar spine wo con* [id number] IMPRESSION: 1. Severe central canal stenosis L3-4 appears similar to previous. 2. Moderate central canal stenosis L2-3 appears stable. 3. Stable appearing fusion L4-S1 with interbody fusion grafts. 4. Moderate RIGHT greater than LEFT L2-3 foraminal narrowing. 5. Severe bilateral L3-4 foraminal narrowing similar in appearance.
--- NOTE | 2024-06-08 12:00 | CTR_ITS ---
PROCEDURE INFORMATION: Exam: CT Chest With Contrast; Diagnostic Exam date and time: 06/08/2024 12:05 PM Age: 79 years old Clinical indication: Condition or disease; Lung condition and disease; Cancer of the lung; Unspecified; Primary cancer: Right lung; Prior surgery; Surgery date: 6+ months; Additional info: Fu lung cancer TECHNIQUE: Imaging protocol: Diagnostic computed tomography of the chest with contrast. Radiation optimization: All CT scans at this facility use at least one of these dose optimization techniques: automated exposure control; mA and/or kV adjustment per patient size (includes targeted exams where dose is matched to clinical indication); or iterative reconstruction. Contrast material: OMNI 350; Contrast volume: 100 ml; Contrast route: INTRAVENOUS (IV); COMPARISON: PT PET [facility] SUBSEQ [id number] 12/02/2023 10:22 AM RADIATION DOSE METRICS: Total DLP (mGy-cm): 375.73 FINDINGS: Lungs: Unchanged bilateral bullous emphysema with hyperinflation of the lungs. Unchanged 2 cm by 1.5 cm soft tissue mass with surrounding spiculations and scarring in the left upper lobe. A few small areas of pulmonary scarring are not significantly changed. Otherwise, unremarkable. Pleural spaces: Unremarkable. No pneumothorax. No pleural effusion. Heart: Unremarkable. No cardiomegaly. No pericardial effusion. Coronary arteries: Unchanged tiny amount of coronary artery calcification. Esophagus: New fluid throughout the non thick walled esophagus suggests gastroesophageal reflux disease. Lymph nodes: Unremarkable. No enlarged lymph nodes. Vasculature: Unremarkable. No aortic aneurysm. Gallbladder and biliary ducts: A few small gallstones layering in the gallbladder are unchanged. Otherwise, unremarkable. Bones/joints: Unchanged mild scoliosis. Unchanged mild multilevel spondylosis. A few old left rib fractures, but new since December 02, 2023.. Otherwise, unremarkable. Soft tissues: Otherwise, unremarkable visualized body wall. Otherwise, unremarkable soft tissues. Other findings: Otherwise, unremarkable visualized upper abdominal structures. CT/CT chest w con* [id number] IMPRESSION: 1. Unchanged 2 cm by 1.5 cm soft tissue mass with surrounding spiculations and scarring in the left upper lobe. 2. New fluid throughout the esophagus suggests gastroesophageal reflux disease. 3. A few old left rib fractures, but new since December 02, 2023. 4. Additional details as above. Unchanged. COMMENTS: The presence of pulmonary emphysema on CT is an independent risk factor for lung cancer. In the absence of a history or active diagnosis of lung cancer, it is recommended that this patient with emphysema be evaluated for enrollment in a low dose CT lung cancer screening program.
[2024-06-08] MEDS: iohexol 350 mg/mL 500 mL Btl (per mL) IV (12:26)
== END 2024-06-22 23:59 | disposition home or self-care (01) ==
LOC: RAD 13:51 → ONCMED 06-04 08:48 → RAD 06-09
PROVIDERS: PCP Family Medicine; Visit Provider Radiology Radiation Oncology
DX: Z53.9 Procedure and treatment not carried out, unspecified reason; C34.12 Malignant neoplasm of upper lobe, left bronchus or lung; K22.9 Disease of esophagus, unspecified; S22.49XA Multiple fractures of ribs, unspecified side, initial encounter for closed fracture; X58.XXXA Exposure to other specified factors, initial encounter
CPT/HCPCS: 36415; 71260; 72148; 80053; 81001; 85025; 99024

== ENCOUNTER 2024-06-07 16:29 | Inpatient (IN) | payer MEDICARE, OTHER, SELFPAY ==
[2024-06-07] VITALS (12 sets, daily range): BP systolic 87–141; BP diastolic 51–85; PULSE 74–88; RESP 13–21; TEMP 36.1–36.8; O2SAT 90–100; BMI 26.4; BMI 26.8
--- NOTE | 2024-06-07 12:45 | W.PM.OPSUD ---
Surgery/Procedure H&P Update DATE OF PROCEDURE: June 07, 2024 DATE H&P PERFORMED: 06/03/24 H&P UPDATE INFORMATION: I have reviewed H&P completed within last 30 days, I have examined patient prior to procedure and No changes to prior documentation PREOP DIAGNOSIS: Lumbar stenosis with neurogenic claudication PLANNED PROCEDURE: Operation Date: 06/07/24 14:05 Proposed Procedures p Spinal Fusion PSF(Not Applicable) - Reilly Morales DO s Lumbopelvic Fixation(Not Applicable) - DO sammy Garcia Sacroiliac Joint Fusion SI Joint Fusion(Bilateral) - DO sammy Garcia Lumbar Spine Decompression Lumbar Decompression(Not Applicable) - Reilly Morales DO
--- NOTE | 2024-06-07 13:17 | ANES.PREANE2 ---
Pre-Anesthetic Assessment Height/Weight: Height 1.8 m Weight 86.183 kg Temp Pulse Resp BP Pulse Ox O2 Del Method 98.3 F 77 16 141/85 94 Room Air 06/07/24 12:46 06/07/24 12:46 06/07/24 12:46 06/07/24 12:46 06/07/24 12:46 06/07/24 12:46 Preop Diagnosis: Lumbar stenosis with neurogenic claudication Operation Date: 06/07/24 14:05 Proposed Procedures p Spinal Fusion PSF(Not Applicable) - Reilly Morales DO s Lumbopelvic Fixation(Not Applicable) - Reilly Morales DO s Sacroiliac Joint Fusion SI Joint Fusion(Bilateral) - DO sammy Garcia Lumbar Spine Decompression Lumbar Decompression(Not Applicable) - Reilly Morales DO Familial anesthetic complications: None Was Beta Joe taken within 24 hours: N/A Was Clonidine taken within 24 hours: N/A Last intake: Intake Last Liquid Date 06/07/24 Last Liquid Time 08:00 Last Solid Date 06/06/24 Last Solid Time 20:00 Social No alcohol and No tobacco Exam alert, oriented x 3, clear to auscultation bilaterally and regular rate & rhythm Airway Mallampati: Class I Dentition: full Pulmonary Chronic Obstructive Pulmonary Disease (LUng cancer, hx ptx) CV/HEM Hypertension GI Gastroesophageal Reflux Disease Anesthetic Plan ASA status: 3 Anesthesia: General Risk of > 500 ml blood loss (7ml/kg in children): No Medications/Allergies Home Medications Medication Instructions Recorded Confirmed Last Taken Type multivitamin 1 tab PO DAILY 07/27/19 06/07/24 06/06/24 History potassium gluconate 595 mg (99 mg) 99 mg PO BID 04/28/23 06/07/24 06/06/24 History tablet ascorbic acid (vitamin C) 1,000 mg 1,000 mg PO DAILY 07/08/23 06/04/24 06/04/24 History tablet magnesium oxide 250 mg PO DAILY 07/08/23 06/04/24 06/04/24 History omega-3 fatty acids-fish oil 360 2 cap PO DAILY 07/08/23 06/07/24 06/06/24 History mg-1,200 mg capsule (Fish Oil) saw palmetto 450 mg capsule 900 mg PO DAILY 07/08/23 06/07/24 06/06/24 History turmeric 100 mg-tanner 150 1 cap PO DAILY 07/08/23 06/07/24 06/06/24 History mg-olive 50 mg-oreg 150 mg-capryl capsule zinc acetate 50 mg (zinc) capsule 50 mg PO DAILY 07/08/23 06/07/24 06/06/24 History (Galzin) lovastatin 40 mg tablet 40 mg PO BEDTIME 07/11/23 06/07/24 06/06/24 History omeprazole 20 mg capsule,delayed 20 mg PO BID 07/11/23 06/07/24 06/06/24 History release albuterol sulfate 90 mcg/actuation 2 inh inhalation Q8H PRN shortness 07/15/23 06/07/24 05/24/24 Rx aerosol inhaler (Ventolin HFA) of breath or wheezing #8.5 grams cholecalciferol (vitamin D3) 50 50 mcg PO DAILY 07/29/23 06/07/24 06/06/24 History mcg (2,000 unit) capsule glucosamine HCl 500 mg tablet 500 mg PO BID 07/29/23 06/07/24 06/06/24 History tiotropium bromide 1.25 2 puff inhalation DAILY 07/29/23 06/07/24 06/06/24 History mcg/actuation mist for inhalation (Spiriva Respimat) docusate sodium 100 mg capsule 100 mg PO BID #14 caps 09/04/23 06/07/24 06/06/24 Rx (Colace) cyclobenzaprine 10 mg tablet 10 mg PO TID PRN muscle spasm #30 03/01/24 06/07/24 06/05/24 Rx tabs bupropion HCl 150 mg tablet,12 hr 150 mg PO BID 03/02/24 06/07/24 06/06/24 History sustained-release (Wellbutrin SR) hydrochlorothiazide 25 mg tablet 25 mg PO QAM #90 tabs 04/19/24 06/07/24 06/06/24 Rx gabapentin 300 mg capsule 300 mg PO TID #90 caps 05/03/24 06/07/24 06/06/24 Rx hydrocodone 5 mg-acetaminophen 325 1 - 2 tab PO .Q4-6H PRN pain 7 05/27/24 06/04/24 06/04/24 Rx mg tablet days #40 tabs Bone Growth Stimulator #1 ea 06/07/24 Unknown Rx Allergies Allergy/AdvReac Type Severity Reaction Status Date / Time No Known Allergies Allergy Verified 06/04/24 09:55 [facility] Anesthesia Medical History GERD (gastroesophageal reflux disease) Degenerative joint disease of spine Hyperlipidemia COPD (chronic obstructive pulmonary disease) Collapse of left lung H/o collapsed lung years ago and needed Pleurodesis Elevated PSA History of CVA (cerebrovascular accident) Skin cancer 5-FU cream used - on face Palpitation BPH loc w urin obs/LUTS HTN (hypertension) Surgical History History of bronchoscopy (07/15/23) Navigational bronchoscopy/EBUS History of melanoma excision S/P cervical spinal fusion S/P laminectomy with spinal fusion 11/04/16 Dr. Navas S/P rotator cuff repair 1998 X2 Status post lumbar spine surgery for decompression of spinal cord 1980; 1999 Hx of cataract surgery Family History Mother , 87 Valvular heart disease Failure to thrive in adult Brother Valvular heart disease Torn aortic cusp Cancer Sister Valvular heart disease Father , 80s Cancer Social History Smoking and tobacco/nicotine status: former use of tobacco/nicotine Quit status (tobacco/nicotine): has quit using Year quit tobacco: 2023 Former quit date comment: 50 years tobacco use Alcohol intake: never Marital status: Current occupational status: retired Data Anesthesia Cardiac Studies: No Data to Display
[2024-06-07] MEDS: sodium chloride 0.9% 1,000 ML 30 ML IV (13:21)
[2024-06-07] MEDS: ceFAZolin 2,000 mg SDV 2000 MG IVP ×2 (13:31→21:07)
[2024-06-07] MEDS: lidocaine-epi 2% PF 1:200,000 20 mL SDV 10 ML INJECTION (14:35)
[2024-06-07] MEDS: VANCOMYCIN ADD-Vantage 1,000 MG VIAL 1000 MG XX (14:35)
[2024-06-07] MEDS: heparin, porcine 1,000 unit/mL INJ 10 mL 6000 UNIT IRRIGATION (14:35)
--- NOTE | 2024-06-07 17:48 | XR_ITS ---
WS: [id number] Lumbar spine, C-arm fluoroscopy views, 06/07/2024 Clinical Data: OR PICS Comparison: Lumbar spine, 02/05/2024 Findings: Dr. Morales extended the posterior lumbosacral fusion. XR/XR lumbar spine 2-3V* 04018 Impression: Posterior lumbosacral fusion.
--- NOTE | 2024-06-07 18:34 | PC.NURSE ---
This nurse took report from OTILIO Casillas in PACU at 1832.
--- NOTE | 2024-06-07 18:45 | ANE.PACU2 ---
Inpatient post-anesthesia follow up: Airway intact: Yes Vital signs: Temperature 98.3 F Pulse Rate 85 Respiratory Rate 18 Blood Pressure 98/50 Pulse Oximetry 97 Oxygen Delivery Me thod Room Air Oxygen Flow Rate 3 Fraction of Inspir ed Oxygen Hydration adequate: Yes Nausea and vomiting: No Pain level: 1 Mental status: Baseline
--- NOTE | 2024-06-07 18:45 | P.OP_ITS ---
Operative Report Date of procedure: June 07, 2024 Pre-op diagnosis: Lumbar stenosis with neurogenic claudication L3-4 spondylolisthesis Post-op diagnosis: same Procedure done: 1. L2 to pelvis fusion 2. L2-S1 posterior spine instrumentation 3. Lumbopelvic instrumentation 4. Open SI joint fusion on the right 5. Open SI joint fusion on the left 6. Use of computer navigation stereotactic for spine 7. Bone marrow aspirate from right iliac crest 9. L3/4 laminectomy and facetectomies 10. Use of allograft 11. Removal of deep hardware from spine 12. Revision spine surgery Surgeon: Reilly Morales DO Estimated blood loss (mL): 850 Procedure: 1. L2 to pelvis fusion 2. L2-S1 posterior spine instrumentation 3. Lumbopelvic instrumentation 4. Open SI joint fusion on the right 5. Open SI joint fusion on the left 6. Use of computer navigation stereotactic for spine 7. Bone marrow aspirate from right iliac crest 9. L3/4 laminectomy and facetectomies 10. Use of allograft 11. Removal of deep hardware from spine 12. Revision spine surgery Patient brought to the operative suite after undergoing anesthesia was placed in the prone position. All areas impingement well-padded. Patient is prepped and draped in normal sterile fashion. Skin incisions made using the previous skin incision extending slightly above and below. The thoracolumbar fascia was split and subperiosteal dissection was made out to the transverse process of L2 to L5 bilaterally as well as the sacral ala bilaterally. The screws were identified at L3-S1 bilaterally. Transverse processes of the L4 and 5 were identified and dissected out as well. Sacrum and SI joints were dissected out as well. The screw caps. From the Susan system which we did not have to removed. I had to cut the rods. And then I put the antitorque device onto back of the screws at S1 and L4 on the left. There is only 2 screws on the left side. L4- L5 and S1 removed on the right in the same manner using the bur to cut through the metal rods. And then have a cup taking out the screws. Next attension was was brought to the bone marrow aspirate. This was done by using the [employer] cell bone marrow aspiration kit. The iliac crest was identified and through a separate incision through the fascia and the bone marrow aspiration kit was inserted into the right iliac crest. Bone marrow aspirate was taken 20 cc. This was mixed with the allograft. Next attention was brought to placing the fiducial for the C-arm. This is going to be used for the computer navigation. 2 pins were placed into the right iliac crest which were later moved to the end of the case. The fiducial was attached. C-arm was brought in and then spun around the patient. The information from serum was then later used after is loaded the computer for the placement of pedicle screws. Next attention was brought to placing the pedicle screws. This was done at L2 bilaterally, L3 bilaterally L4 bilaterally, L5 bilaterally and S1 bilaterally. The computer navigated awl was inserted into the pedicle. Followed by the pedicle feeler. Followed by placement of the screws using the computer navigation. At all these levels. Next attention was placing the iliac screws. This was done using the computer navigated awl. This is placed through the ala across the SI joint into the iliac crest. Then followed by the pedicle feeler. Followed by computer navigated tap. 90 mm 9.5 millimeter pedicle screws were then placed into the iliac crest. This was done bilaterally. Next attention was brought to the open SI joint fusions. This was done by using the computer navigated awl crossing the SI joint. Through direct visualization as well. The pedicle feeler was used to make sure was crossed no breaches. The canal was then filled with bone graft. And then a computer navigated SI joint fusion screws placed across the SI joint. This process was done on both the right and the left side. Once all the screws were placed attention was then brought to doing the laminectomy at L3-4. Patient had previous laminectomies performed on the right side. At this point the spinous process was taken down at L3-4. High-speed bur was used to take down the laminectomy. The facet joints were also taken down using the high-speed bur burring completely out so that the L3 nerves were identified. The facet was taken down and the medial aspect of the facet up to the pedicle was taken down bilaterally of the L4 pedicle. Using Kerrison rongeur. Ligamentum flavum was taken down as far as the kidney there was scarring. However the dura was completely opened and felt to be adequately decompressed. The L3 nerves were traced around the L3 pedicle out where the foramen was in the L4 nerves were traced around the L4 pedicles. The spondylolisthesis identified disc material was removed as well to free up the disc. Wounds were then irrigated. The emily was then attached fromL2 L3 into the tulips of L4, L5, S1 and into the iliac screw completing the lumbopelvic fixation. The L2-3 and L3-4 segments were distracted. This helped to reduce the spondylolisthesis that was present at L3-4. The screw caps were then torqued into position. This was done bilaterally. Next attention was brought to decorticating the transverse processes of L3 bilaterally L3 bilaterally L4 bilaterally L5 bilaterally and sacral ala bilaterally as well as the SI joints. Osteoamp bone graft was then packed into the gutters. And across the SI joint. Vancomycin powder was placed deep drain was placed and wound was closed in layered fashion with Vicryl and Monocryl. Sterile dressings were applied patient was transferred to the PACU in stable condition.
[2024-06-07] MEDS: lactated ringers 1,000 ML 90 ML IV (18:58)
--- NOTE | 2024-06-07 19:02 | PC.NURSE ---
1855 - to floor x this nurse and OR nurse - BP 111/58 - Pulse 77 - 023L NC 100 - temp 97.5
[2024-06-07] MEDS: HYDROcodone-acetaminophen 10-325 mg Tablet PO (19:40)
[2024-06-07] MEDS: gabapentin 300 mg Capsule PO (20:16)
[2024-06-07] MEDS: atorvastatin 40 mg Tablet PO (20:16)
[2024-06-07] MEDS: ipratropium 0.5 mg/2.5 mL Neb INHALATION (20:43)
[2024-06-07] MEDS: morphine 4 mg/mL SDV 1 mL 2 MG IVP ×2 (21:07→23:19)
[2024-06-08 04:00] VITALS: BP 98/50; PULSE 85; RESP 18; TEMP 36.8; O2SAT 97
[2024-06-08] MEDS: hydroCHLOROthiazide 25 mg Tablet PO (05:20)
[2024-06-08] MEDS: lactated ringers 1,000 ML 90 ML IV (05:20)
[2024-06-08] MEDS: ceFAZolin 2,000 mg SDV 2000 MG IVP (05:20)
[2024-06-08 06:05] LABS: Hematocrit 30.4 % (37-53)
[2024-06-08 07:12] VITALS: BP 120/62; PULSE 78; RESP 16; TEMP 36.6; O2SAT 90
[2024-06-08 07:25] VITALS: PULSE 78; RESP 16; O2SAT 90
[2024-06-08] MEDS: ipratropium 0.5 mg/2.5 mL Neb INHALATION (07:25)
--- NOTE | 2024-06-08 07:57 | P.DS_ITS ---
Discharge Providers Date of Admission: 06/07/24 16:29 Date of Discharge: June 08, 2024 Attending Provider at Admission: Reilly Morales DO Attending Provider at Discharge: Reilly Morales DO Primary Care Provider: Clint Christina MD Reason for Visit Reason for Visit: M46.1 Physical Exam Narrative: Pain controlled. Sitting in bed eating breakfast. Urinary Catheter Management: Guillen: Cath Placed During This Visit: yes, but has since been removed by the nurse Reason for Continuing Indwelling Catheter: Decision to DC Catheter Urinary Catheter Date of Insertion: 06/07/24 Urinary Catheter Time of Insertion: 13:40 Date Urinary Catheter Removed: 06/08/24 Time Urinary Catheter Discontinued: 06:10 Discharge Data Studies Completed and Pending Pending at discharge Category Date Time Status C-arm Fluoroscopy [id number] Routine Exams 06/07/24 12:36 Taken XR lumbar spine 2-3V* [id number] Routine Exams 06/07/24 17:48 Taken Hemoglobin and Hematocrit AM LABS Lab 06/09/24 04:00 Ordered Retype for Patiets ABO/Rh Routine Lab 06/07/24 14:38 Ordered Laboratory Results Hgb 9.60 g/dL (11.27-16.99) L 06/08/24 05:11 Hct 30.4 % (37-53) L 06/08/24 05:11 Blood Type O Positive 06/07/24 13:05 Rho(D) Type Rh positive 06/07/24 13:05 Antibody Screen Negative 06/07/24 13:05 Vitals Last Vital Signs Temp 97.9 F 06/08/24 07:12 Pulse 78 06/08/24 07:25 Resp 16 06/08/24 07:25 BP 120/62 06/08/24 07:12 Pulse Ox 90 06/08/24 07:25 O2 Del Method Room Air 06/08/24 07:25 O2 Flow Rate 3 06/07/24 18:46 Discharge Plan Discharge Patient Disposition: Home Condition: Stable Prescriptions: New hydrocodone-acetaminophen 10-325 mg tablet 1 tab PO Q4H PRN (Reason: pain) 7 Days Qty: 42 0RF Continued multivitamin Tablet 1 tab PO DAILY [id number]-gzvtq-oreg-capry 100 mg-150 mg- 50 mg-150 mg capsule 1 cap PO DAILY magnesium oxide 200 mg magnesium tablet 250 mg PO DAILY Galzin 50 mg (zinc) capsule 50 mg PO DAILY ascorbic acid (vitamin C) 1,000 mg tablet 1,000 mg PO DAILY omega-3 fatty acids-fish oil [Fish Oil] 360-1,200 mg capsule 2 cap PO DAILY saw palmetto 450 mg capsule 900 mg PO DAILY Rx Instructions: give with food (meal/snack) cholecalciferol (vitamin D3) 50 mcg (2,000 unit) capsule 50 mcg PO DAILY glucosamine HCl 500 mg tablet 500 mg PO BID Rx Instructions: administer with meals Spiriva Respimat 1.25 mcg/actuation mist 2 puff inhalation DAILY Ventolin HFA 90 mcg/actuation HFA aerosol inhaler 2 inh inhalation Q8H PRN (Reason: shortness of breath or wheezing) Qty: 8.5 3RF cyclobenzaprine 10 mg tablet 10 mg PO TID PRN (Reason: muscle spasm) Qty: 30 3RF hydrochlorothiazide 25 mg tablet 25 mg PO QAM Qty: 90 3RF gabapentin 300 mg capsule 300 mg PO TID Qty: 90 6RF (DME) Bone Growth Stimulator See Rx Instructions .Route .MEDSUPPLY Qty: 1 0RF Rx Instructions: As directed potassium gluconate 595 mg (99 mg) tablet 99 mg PO BID bupropion HCl [Wellbutrin SR] 150 mg tablet sustained-release 12 hr 150 mg PO BID lovastatin 40 mg tablet 40 mg PO BEDTIME Rx Instructions: TAKE 1 TABLET BY MOUTH AT BEDTIME omeprazole 20 mg capsule,delayed release(DR/EC) 20 mg PO BID Rx Instructions: Take 1 capsule by mouth twice daily docusate sodium [Colace] 100 mg capsule 100 mg PO BID Qty: 14 0RF Discontinued hydrocodone-acetaminophen 5-325 mg tablet 1 - 2 tab PO .Q4-6H PRN (Reason: pain) 7 Days Qty: 40 0RF Discharge Orders: Discharge Order (Routine); Ordered 06/08/24 Ordered By: Reilly Morales Discharge Diet: Advance as tolerated Discharge Activity: Limit activity as instructed Patient Instructions: Acute Wound Care (DC), Opioid Safety, Post Anesthesia Care Activity Restrictions/Additional Instructions: Thank you for [facility] for your care! The following is a list of instructions, from your provider, to follow upon your discharge to ensure you have the optimal recovery from your recent injury orsurgery. Follow-up care is a shane part of your treatment and safety. Be sure to make and go to all appointments, and call your doctor if you are having problems. If you do not already have a follow-up appointment made, call Dr. Morales office in the next 1-3 days to make follow up appointment for 1 weeks at [phone]. It is also a good idea to know your test results and keep a list of the medicines you take. Medications will be prescribed for you at your provider's discretion. These medications are to be used as instructed; if they are taken more often that prescribed they will not be refilled early and in most cases will not be refilled at all. > When a refill is needed,you should contact zoey bravo 2-3 business days before your prescription runs out. Medications will NOT be refilled by automation operator providers after hours! > Many pain medications contain Tylenol (Acetaminophen). Do not consume more than 4,000 mg of Tylenol per day in total with any combination ofmedications. > Pain medications can cause constipation. Please use an over the counter stool softener as directed, while taking pain medications. Consulty our local pharmacist with questions or recommendations on stool softeners. If constipation persists, contact our office or your primary care provider. > While under our care,you are not to receive pain medications or other controlled substances from any other provider unless our office is notified and approves. Any attempts to do so will result in refusal to prescribe any further pain medications and possible dismissal from our practice. ? Keep dressing on until your follow-up in 1 week. We will change dressing in clinic. ? Showering is permitted, however we ask that you do not take a bath, sit in a whirlpool / Jacuzzi, or go swimming for 1 month. For only the first 2 days after surgery, lt wilt be necessary for you to cover your wound/dressing with plastic and tape to keep it dry. ? Walking is essential for the healing process after surgery. We would like you to slowly advance your walking. This should be done on relatively flat clear ground (inside or out) or can be done on a treadmill. Remember this goal does not have to happen all at once, slowly increase your distance and duration. This can be broken into more more than one walk per day as tolerated. Patients who walk as directed after surgery rarely require Physical Therapy. In the unlikely event this issue arises your provider will direct hospital staff to make the appropriate arrangements. ? No lifting over 5 pounds {a gallon of milk) or bending/twisting until further notice. Each of these activities places an unnecessary amount of stress onto the body and can impede the delicate healing process. > Instead of bending at the waist, keep your back straight and bend at the knees. > Instead of twisting your torso, keep your back straight and turn your entire body with your feet. ? You may sleep in any position which makes you comfortable. Many patients find comfort sleeping in a reclining chair. It is not abnormal to have difficulty sleeping for the first several weeks following your surgery. We recommend trying Benadry! or Tylenol PM as directed to help with your sleeping difficulties. Both medications are over the counter and available withoutprescription. ? NO SMOKING!!! Smoking dramatically increases the probability of developing postoperative wound infections. ? Common complaints after lumbar and/or thoracic spine surgery include, but are not limited to: numbness and/or tingling in the legs, pain around the incision and surrounding tissues, muscle spasms, or stiffness of the middle to low back. Contact our office if these symptoms persist or if an acute change occurs. ? No driving for the first 3-5days, and not while taking narcotics [] until seen at your follow-up appointment and cleared. There are no restrictions for riding on short trips, however if you take a longer trip, arrangements should be made to make regular stops to get out of the vehicle and stretch . ? Swelling is an unfortunate event that will take place with any surgery and is the primary source of your postoperative discomfort. While walking and regular approved activities helps control inflammation, there are additional steps you can take to minimizeswelling. > Place ice over the surgical site and surrounding tissue for twenty minutes, followed by applying a low/medium heat (heating pad) for an additional twenty minutes every 1-2 hours as needed for painrelief. > You may use of over the counter anti-inflammatory medications (Ibuprofen, Motrin, Aleve, Advil, etc) as directed on the package label. These types of medicines wm significantly reduce the amount of discomfort you experience after surgery from swelling. It should be noted that if you have and allergy to any of these medications, or a history of ulcers or kidney disease you should consult you primary care provider prior to starting these medicatio ns. Discharge Attestations Time Spent in Discharge Care*: less than 30 min Quality Metrics Clinical Quality Measures [ No reported AMI, CVA or VTE this stay] Coding Level of Care Code Acute Code for Chg Rayshawn
[2024-06-08] MEDS: zinc gluconate 50 mg Tablet PO (08:24)
[2024-06-08] MEDS: gabapentin 300 mg Capsule PO (08:24)
[2024-06-08] MEDS: docusate sodium 100 mg Capsule PO (08:24)
[2024-06-08] MEDS: cholecalciferol (vitamin D3) 1,000 unit Tablet 2000 UNIT PO (08:24)
[2024-06-08] MEDS: omega-3 fatty acids 1,000 mg Capsule 1000 MG PO (08:24)
[2024-06-08] MEDS: HYDROcodone-acetaminophen 10-325 mg Tablet PO (08:25)
[2024-06-08] MEDS: ascorbic acid 500 mg Tablet 1000 MG PO (08:25)
[2024-06-08] MEDS: buPROPion SR (12 HR) 150 mg Tablet PO (08:25)
[2024-06-08] MEDS: pantoprazole DR 40 mg Tablet PO (08:25)
[2024-06-08] MEDS: magnesium oxide 400 mg tablet 200 MG PO (08:25)
[2024-06-08] MEDS: multivitamin therapeutic Tablet 1 TAB PO (08:25)
--- NOTE | 2024-06-08 10:15 | PC.CHAP ---
Pastoral Care Encounter/Spiritual Assessment Type of Contact [] Declined quill machine tender visit [] Patient/Family/Request visit [] Outpatient visit [] Follow-up visit [] Physician referral [] Code/Alert [x] Routine visit [] Staff referral [] Actively dying [] Patient sleeping [] Family support [] [] Out of room [] Palliative care [] [] Receiving care in room [] Pre-surgical visit [] Trauma [] Long length of stay [] ICU visit [] Other: Relational/Emotional Strength [x] Patient feels connected with others/family/visitors/staff [] Distress [] Loneliness/isolation [] Abandonment Spirituality of Patient [x] Person of Isela [] Attends Mandaeism of their Isela [x] Believes in Prayer [] Reads Bible or Sabianism materials [] There are Spiritual issues to be addressed Steward/Stewardess Lounge Interventions [x] Prayer [x] Active listening [x] Non-anxious presence [x] Spiritual/emotional support [] Crisis/trauma care [] Spiritual counseling [] Bereavement support [] Provided bereavement packet [] Provided Bible/devotional materials [] Provided toy/stuffed animal, coloring book to patient or family member [] Provided Communion [] Anointing/Rice [] Salvation [x] Completed spiritual assessment [] Other: Impact on Illness or Injury [] Angry [] Fearful [] Anxious [] Often cries [] Exhaustion [] Unable to work [] Unable to attend amish [] Unable to walk/stand [] Unable to read [] Unable to drive [] Unable to eat/drink [] Unable to sleep [] Unable to be with family [] Patient intubated [] Other: Summary Time spent with patient 10 min
[2024-06-08 11:24] VITALS: BP 105/65; PULSE 72; TEMP 36.4; O2SAT 95
[2024-06-08 12:14] VITALS: BP 105/65; PULSE 72; RESP 16; TEMP 36.4; O2SAT 95
== END 2024-06-08 11:45 | disposition home or self-care (01) | DRG 448 ==
LOC: MEDSURG 18:56
PROVIDERS: Admitting Provider Orthopaedic Surgery; PCP Family Medicine; Visit Provider Orthopaedic Surgery
PROC: 0SG1071 Fusion of 2 or more Lumbar Vertebral Joints with Autologous Tissue Substitute, Posterior Approach, Posterior Column, Open Approach (ICD-10-PCS; principal; 2024-06-07 13:45)
PROC: 0SG1071 Fusion of 2 or more Lumbar Vertebral Joints with Autologous Tissue Substitute, Posterior Approach, Posterior Column, Open Approach (ICD-10-PCS; 2024-06-07 13:45)
PROC: 0SG1071 Fusion of 2 or more Lumbar Vertebral Joints with Autologous Tissue Substitute, Posterior Approach, Posterior Column, Open Approach (ICD-10-PCS; CPT 27280; 2024-06-07 13:45)
PROC: 0SG1071 Fusion of 2 or more Lumbar Vertebral Joints with Autologous Tissue Substitute, Posterior Approach, Posterior Column, Open Approach (ICD-10-PCS; CPT 63005; 2024-06-07 13:45)
DX: M48.062 Spinal stenosis, lumbar region with neurogenic claudication (principal); M43.16 Spondylolisthesis, lumbar region; K21.9 Gastro-esophageal reflux disease without esophagitis; E78.5 Hyperlipidemia, unspecified; J44.9 Chronic obstructive pulmonary disease, unspecified; N40.1 Benign prostatic hyperplasia with lower urinary tract symptoms; I10 Essential (primary) hypertension; Z98.1 Arthrodesis status; Z86.73 Personal history of transient ischemic attack (TIA), and cerebral infarction without residual deficits; Z85.820 Personal history of malignant melanoma of skin; Z87.891 Personal history of nicotine dependence
CPT/HCPCS: 36415; 51702; 72100; 76000; 85014; 85018; 86850; 86900; 94640; 97116; 97161; C1713; J0690; J1100; J1171; J1644; J2270; J2405; J2704; J2710; J3010; J3370; J3490; J7030; J7120; J7644; P9045

== ENCOUNTER → 2024-07-12 09:34 | Outpatient (BNVA) | payer MEDICARE, OTHER, SELFPAY | PROVIDERS: PCP Family Medicine; Referring Provider Family Medicine; Visit Provider Surgery | DX: K40.20 Bilateral inguinal hernia, without obstruction or gangrene, not specified as recurrent (principal) | CPT/HCPCS: 99214 ==

== ENCOUNTER → 2024-07-20 10:26 | Outpatient (BNVA) | payer MEDICARE, OTHER, SELFPAY | PROVIDERS: PCP Family Medicine; Visit Provider Orthopaedic Surgery | DX: M54.9 Dorsalgia, unspecified (principal); Z98.1 Arthrodesis status | CPT/HCPCS: 72100; 99024 ==

== ENCOUNTER 2024-07-27 05:55 | Day surgery (SDC) | payer MEDICARE, OTHER, SELFPAY ==
[2024-07-27] VITALS (9 sets, daily range): BP systolic 147–181; BP diastolic 71–86; PULSE 69–80; RESP 16–21; TEMP 36.1; O2SAT 94–100; BMI 26.4
[2024-07-27] MEDS: sodium chloride 0.9% 1,000 ML 30 ML IV (06:18)
--- NOTE | 2024-07-27 06:56 | ANES.PREANE2 ---
Pre-Anesthetic Assessment Height/Weight: Height 1.8 m Weight 86.183 kg O2 Del Method Room Air 07/27/24 06:05 Operation Date: 07/27/24 07:00 Proposed Procedures p Laparoscopic Inguinal Hernia Repair with mesh [id number], K40.20(Bilateral) - Ricardo Forman DO Familial anesthetic complications: None Was Beta Joe taken within 24 hours: N/A Was Clonidine taken within 24 hours: N/A Last intake: Intake Last Liquid Date 07/26/24 Last Liquid Time 22:00 Last Solid Date 07/26/24 Last Solid Time 21:00 Social No alcohol and No tobacco Exam alert, oriented x 3, clear to auscultation bilaterally and regular rate & rhythm Airway Mallampati: Class II Dentition: full Pulmonary Chronic Obstructive Pulmonary Disease CV/HEM Hypertension lung ca hx ptx Anesthetic Plan ASA status: 4 Anesthesia: General Risk of > 500 ml blood loss (7ml/kg in children): No Medications/Allergies Home Medications ?Medication ?Instructions ?Recorded ?Confirmed ?Last Taken ?Type multivitamin 1 tab PO DAILY 07/27/19 07/26/24 07/26/24 History potassium gluconate 595 mg (99 mg) 99 mg PO DAILY 04/28/23 07/26/24 07/26/24 History tablet ascorbic acid (vitamin C) 1,000 mg 1,000 mg PO DAILY 07/08/23 07/26/24 07/26/24 History tablet magnesium oxide 250 mg PO DAILY 07/08/23 07/26/24 07/26/24 History saw palmetto 450 mg capsule 900 mg PO DAILY 07/08/23 07/26/24 07/26/24 History turmeric 100 mg-tanner 150 1 cap PO DAILY 07/08/23 07/26/24 07/26/24 History mg-olive 50 mg-oreg 150 mg-capryl capsule zinc acetate 50 mg (zinc) capsule 50 mg PO DAILY 07/08/23 07/26/24 07/26/24 History (Galzin) albuterol sulfate 90 mcg/actuation 2 inh inhalation Q8H PRN shortness 07/15/23 07/26/24 07/24/24 Rx aerosol inhaler (Ventolin HFA) of breath or wheezing #8.5 grams cholecalciferol (vitamin D3) 50 50 mcg PO DAILY 07/29/23 07/26/2425 History mcg (2,000 unit) capsule tiotropium bromide 1.25 2 puff inhalation DAILY 07/29/23 07/26/24 07/26/24 History mcg/actuation mist for inhalation (Spiriva Respimat) bupropion HCl 150 mg tablet,12 hr 150 mg PO DAILY 03/02/24 07/27/24 07/26/24 History sustained-release (Wellbutrin SR) hydrochlorothiazide 25 mg tablet 25 mg PO QAM #90 tabs 04/19/24 07/26/24 07/26/24 Rx Bone Growth Stimulator #1 ea 06/07/24 07/20/24 Unknown Rx cyclobenzaprine 10 mg tablet 10 mg PO TID PRN muscle spasm #30 07/05/24 07/26/24 07/23/24 Rx tabs hydrocodone 10 mg-acetaminophen 1 tab PO Q4H PRN pain 7 days #42 07/20/24 07/27/24 07/26/24 Rx 325 mg tablet tabs docusate sodium 100 mg capsule 100 mg PO QPM 07/26/24 07/26/24 07/25/24 History (Colace) gabapentin 300 mg capsule 300 mg PO TID PRN nerve pain 07/26/24 07/26/24 07/19/24 History lovastatin 40 mg tablet 40 mg PO BEDTIME 07/26/24 07/27/24 07/26/24 History omeprazole 20 mg capsule,delayed 20 mg PO BID 07/26/24 07/26/24 07/26/24 History release Allergies Allergy/AdvReac Type Severity Reaction Status Date / Time No Known Allergies Allergy Verified 07/26/24 10:58 Current Medications Generic Name Dose Route Start Last Admin Trade Name Freq PRN Reason Stop Dose Admin Sodium Chloride 1,000 mls @ 30 mls/hr 07/27/24 06:15 07/27/24 06:18 Sodium Chloride 0.9% IV 07/28/24 06:14 30 mls/hr .Q24H SOWMYA Administration PFSH Anesthesia Medical History Lung cancer GERD (gastroesophageal reflux disease) Degenerative joint disease of spine Hyperlipidemia COPD (chronic obstructive pulmonary disease) Collapse of left lung H/o collapsed lung years ago and needed Pleurodesis Elevated PSA History of CVA (cerebrovascular accident) Skin cancer 5-FU cream used - on face Palpitation BPH loc w urin obs/LUTS HTN (hypertension) Surgical History History of bronchoscopy (07/15/23) Navigational bronchoscopy/EBUS History of melanoma excision S/P cervical spinal fusion S/P laminectomy with spinal fusion 11/04/16 Dr. Navas S/P rotator cuff repair 1998 X2 Status post lumbar spine surgery for decompression of spinal cord 1980; 1999, 2023 ([facility]) Hx of cataract surgery Family History Mother , 87 Valvular heart disease Failure to thrive in adult Brother Valvular heart disease Torn aortic cusp Cancer Sister Valvular heart disease Father , 80s Cancer Social History Smoking and tobacco/nicotine status: unknown if used tobacco/nicotine Quit status (tobacco/nicotine): has quit using Year quit tobacco: 2023 Former quit date comment: 50 years tobacco use Alcohol intake: never Marital status: Current occupational status: retired Data Anesthesia Cardiac Studies: No Data to Display
--- NOTE | 2024-07-27 07:00 | W.PM.OPSUD ---
Surgery/Procedure H&P Update DATE OF PROCEDURE: July 27, 2024 DATE H&P PERFORMED: 07/12/24 H&P UPDATE INFORMATION: I have reviewed H&P completed within last 30 days, I have examined patient prior to procedure and No changes to prior documentation PLANNED PROCEDURE: Operation Date: 07/27/24 07:00 Proposed Procedures p Laparoscopic Inguinal Hernia Repair with mesh [id number], K40.20(Bilateral) - Ricardo Forman DO
[2024-07-27] MEDS: ceFAZolin 2,000 mg SDV 2000 MG IVP (07:02)
[2024-07-27] MEDS: lidocaine-epi 2% PF 1:200,000 20 mL SDV XX (07:45)
--- NOTE | 2024-07-27 07:51 | PM.OP ---
Operative Report Date of procedure: July 27, 2024 Surgeon: Ricardo Forman DO Procedure: Pre-op diagnosis: Bilateral inguinal hernias Post-op diagnosis: Bilateral direct inguinal hernias Procedure done: Laparoscopic (TEPP) repair of left inguinal hernia with mesh Laparoscopic (TEPP) repair of right inguinal hernia with mesh Implants: Left and right extra-large 3D max Bard meshes Specimens removed/disposition: None Surgeon: Ricardo Forman DO Anesthesia: General and Local Estimated blood loss (mL): 5 Complications: None apparent Brief History: This is a very pleasant 79-year-old gentleman who presented my office with bilateral inguinal hernias. Laparoscopic repair with mesh was indicated. The risk and benefits were explained and documented. Procedure: Patient was wheeled into the operative room and placed on the OR table in a supine position. Abdomen was inspected prepped and draped in usual sterile fashion. Time-out was performed and all present were in agreement. A 15 blade scalpel was used to make 1.2 centimeter incision infraumbilically. Combination of sharp and blunt dissection was performed down to the anterior rectus sheath which was opened sharply. The dissecting balloon was then inserted into the space of Retzius and blown up. We put the camera into the port and identified that we were in the correct space. I then placed 2 5 millimeter trocars suprapubically in the midline. I then used endokitners to bluntly dissect in the space of Retzius out laterally. A direct inguinal hernia was identified on the right. Blunt dissection was performed to dissect down the hernia sac until the vas deferens dove medially. An extra-large 3D max Bard right inguinal mesh was then placed into the space of Retzius. The mesh was unrolled and tacked once medially at the pubic bone. The mesh laid out nicely over the spermatic cord. A direct inguinal hernia was identified on the left. Blunt dissection was performed to dissect down the hernia sac until the vas deferens dove medially. An extra-large 3D max Bard left inguinal mesh was then placed into the space of Retzius. The mesh was unrolled and tacked once medially at the pubic bone. The mesh laid out nicely over the spermatic cord. Hernia sacs were held underneath the meshes as the insufflation was released. Incisions were closed with 4 O Vicryl in a subcuticular interrupted fashion. Skin glue was applied. Patient tolerated the procedure well.
--- NOTE | 2024-07-27 08:43 | SUR.PHASEII ---
WARM BLANKETS APPLIED. PO FLUIDS GIVEN.
--- NOTE | 2024-07-27 09:15 | ANE.PACU2 ---
Inpatient post-anesthesia follow up: Airway intact: Yes Vital signs: Temperature 97.0 F Pulse Rate 69 Respiratory Rate 18 Blood Pressure 153/80 Pulse Oximetry 94 Oxygen Delivery Me thod Room Air Oxygen Flow Rate 6 Fraction of Inspir ed Oxygen Hydration adequate: Yes Nausea and vomiting: No Pain level: 1 Mental status: Baseline
== END 2024-07-27 09:15 | disposition home or self-care (01) ==
PROVIDERS: PCP Family Medicine; Visit Provider Surgery
PROC: (CPT 49650; principal; 2024-07-27 07:00)
DX: K40.20 Bilateral inguinal hernia, without obstruction or gangrene, not specified as recurrent (principal); J44.9 Chronic obstructive pulmonary disease, unspecified; I10 Essential (primary) hypertension; Z85.118 Personal history of other malignant neoplasm of bronchus and lung; Z79.899 Other long term (current) drug therapy; K21.9 Gastro-esophageal reflux disease without esophagitis; Z87.891 Personal history of nicotine dependence; Z86.73 Personal history of transient ischemic attack (TIA), and cerebral infarction without residual deficits
CPT/HCPCS: 49650; 51702; C1781; J0690; J1100; J2405; J2704; J3010; J3490; J7030

== ENCOUNTER → 2024-08-09 08:29 | Outpatient (BNVA) | payer MEDICARE, OTHER, SELFPAY | PROVIDERS: PCP Family Medicine; Visit Provider Surgery | DX: R20.9 Unspecified disturbances of skin sensation (principal) | CPT/HCPCS: 99214 ==

== ENCOUNTER → 2024-08-31 10:24 | Outpatient (BNVA) | payer MEDICARE, OTHER, SELFPAY | PROVIDERS: PCP Family Medicine; Visit Provider Orthopaedic Surgery | DX: Z98.1 Arthrodesis status (principal) | CPT/HCPCS: 72100; 99024 ==

== ENCOUNTER → 2024-10-01 11:04 | Outpatient (BNVA) | payer MEDICARE, OTHER, SELFPAY | PROVIDERS: PCP Family Medicine; Visit Provider Student in an Organized Health Care Education/Training Program | DX: Z87.19 Personal history of other diseases of the digestive system (principal); G89.29 Other chronic pain; Z79.899 Other long term (current) drug therapy | CPT/HCPCS: 99214 ==

== ENCOUNTER 2024-10-11 09:00 | Outpatient (CLI) | payer MEDICARE, OTHER, SELFPAY ==
--- NOTE | 2024-10-11 09:15 | CT_ITS ---
WS: [id number] CT ABDOMEN PELVIS TECHNIQUE: Contrast-enhanced CT of the abdomen and pelvis with coronal and sagittal reformatted images. CLINICAL INFORMATION: Bilateral Inguinal Hernia COMPARISON: None. DLP: 329.[address] scans at [facility] use at least one of these dose optimization techniques: automated exposure control; mA and/or kV adjustment per patient size (includes targeted exams where dose is matched to clinical indication); or iterative reconstruction. FINDINGS: Emphysematous changes in the lung bases. Bilateral fat-containing inguinal hernias RIGHT greater than LEFT. No herniated bowel. Cholelithiasis. Hepatomegaly with hepatic steatosis. Small esophageal hiatal hernia. Normal caliber abdominal aorta. Aortic calcification. Celiac and SMA are patent. Adrenal glands are normal. Normal renal parenchymal enhancement. Pedicle screw fixation L2-S1. Small fat-containing umbilical hernia. Markedly enlarged prostate with evidence of bladder outlet obstruction. Diffuse bladder wall thickening. Prostate measures 5.2 cm. Sigmoid diverticulosis. No evidence of acute diverticulitis. Fecal retention in the cecum and RIGHT colon CT/CT abdomen pelvis w con* [id number] IMPRESSION: 1. Bilateral fat-containing inguinal hernias RIGHT greater than LEFT. 2. Small fat-containing umbilical hernia. 3. Cholelithiasis. 4. Small esophageal hiatal hernia. 5. Markedly enlarged prostate with bladder outlet obstruction. Findings suspic ious for hyperplasia/neoplasia. Recommend correlation PSA. 6. Hepatomegaly with fatty liver
[2024-10-11 09:32] LABS: Blood Urea Nitrogen 22 mg/dL (8-23)
[2024-10-11] MEDS: iohexol 350 mg/mL 500 mL Btl (per mL) IV (09:40)
== END 2024-10-11 09:01 | disposition home or self-care (01) ==
LOC: RAD 09:02
PROVIDERS: PCP Family Medicine; Visit Provider Student in an Organized Health Care Education/Training Program
DX: K40.20 Bilateral inguinal hernia, without obstruction or gangrene, not specified as recurrent (principal); K42.9 Umbilical hernia without obstruction or gangrene; K80.20 Calculus of gallbladder without cholecystitis without obstruction; K44.9 Diaphragmatic hernia without obstruction or gangrene; N40.0 Benign prostatic hyperplasia without lower urinary tract symptoms; N32.0 Bladder-neck obstruction; R16.0 Hepatomegaly, not elsewhere classified; J43.9 Emphysema, unspecified; K76.0 Fatty (change of) liver, not elsewhere classified; I70.0 Atherosclerosis of aorta; Z98.890 Other specified postprocedural states; N32.89 Other specified disorders of bladder; K59.00 Constipation, unspecified
CPT/HCPCS: 74177; 82565; 84520

== ENCOUNTER → 2024-10-25 14:46 | Outpatient (BNVA) | payer MEDICARE, OTHER, SELFPAY | PROVIDERS: PCP Family Medicine; Visit Provider Student in an Organized Health Care Education/Training Program | DX: G89.29 Other chronic pain (principal); Z98.890 Other specified postprocedural states; Z87.19 Personal history of other diseases of the digestive system | CPT/HCPCS: 99214 ==

== ENCOUNTER → 2024-11-30 08:23 | Outpatient (BNVA) | payer MEDICARE, OTHER, SELFPAY | PROVIDERS: PCP Family Medicine; Visit Provider Orthopaedic Surgery | DX: Z98.1 Arthrodesis status (principal) | CPT/HCPCS: 72100; 99213 ==

== ENCOUNTER 2024-12-13 12:00 | Oncology outpatient (recurring) (ONCR) | payer MEDICARE, OTHER, SELFPAY ==
--- NOTE | 2024-11-22 13:30 | US_ITS ---
WS: [id number] RENAL ULTRASOUND URINARY BLADDER ULTRASOUND HISTORY: Difficulty with urination, pelvic pain COMPARISON: CT 10/11/2024 TECHNIQUE: 2-D and color Doppler imaging of the kidney submitted. Right kidney: 10.2 cm x 6.0 cm x 4.6 cm. Normal echogenicity with no hydronephrosis or mass. Left kidney: 11.1 cm x 5.5 cm x 5.3 cm. Normal echogenicity with no hydronephrosis or mass. Aorta: Normal. Urinary Bladder: Bladder is well distended. There is diffuse bladder wall thickening and irregularity. No focal mass. Prostate gland is enlarged and heterogeneous. Prostate measures 4.3 x 3.9 x 4.4 cm. US/US renal BI with PV bladder IMPRESSION: 1. Normal kidneys. 2. No renal obstruction. 3. Enlarged urinary bladder with bladder wall heterogeneity and nodularity lik favian hyperplasia from outlet obstruction. 4. Prostate gland is enlarged.
--- NOTE | 2024-12-13 12:00 | CTR_ITS ---
PROCEDURE INFORMATION: Exam: CT Chest With Contrast; Diagnostic Exam date and time: 12/13/2024 12:36 PM Age: 79 years old Clinical indication: Condition or disease; Lung condition and disease; Cancer of the lung; Bilateral; Unspecified; Prior surgery; Surgery date: 6+ months; Surgery type: Port; Additional info: Lung cancer sp sbrt TECHNIQUE: Imaging protocol: Diagnostic computed tomography of the chest with contrast. Radiation optimization: All CT scans at this facility use at least one of these dose optimization techniques: automated exposure control; mA and/or kV adjustment per patient size (includes targeted exams where dose is matched to clinical indication); or iterative reconstruction. Contrast material: OMNI 350; Contrast volume: 100 ml; Contrast route: INTRAVENOUS (IV); COMPARISON: CT chest w con* [id number] 06/08/2024 12:05 PM RADIATION DOSE METRICS: Total DLP (mGy-cm): 316.4 FINDINGS: Tubes, catheters and devices: There is a right chest port with the line tip appropriately positioned in the lower SVC near the cavoatrial junction. Lungs: There is a focus of pulmonary parenchymal scarring with a central irregular 2.6 x 1.5 cm nodule in the left upper lobe, stable since 06/08/2024 (axial image measurements differ slightly due to differences in slice selection). There is surrounding pulmonary parenchymal architectural distortion and volume loss in the left upper lobe. There is right apical subpleural scarring. There is moderate upper lung predominant centrilobular emphysema. There is asymmetric soft tissue density in the left hilum surrounding the upper lobe bronchi without a discrete mass, similar to the findings on 06/08/2024. Pleural spaces: There is no pleural effusion or pneumothorax. Heart: Heart size is normal. There is no pericardial effusion. Lymph nodes: There is no mediastinal or hilar lymphadenopathy. Vasculature: There is moderate aortic atherosclerotic disease. Central pulmonary arteries are unremarkable. Gallbladder and biliary ducts: Cholelithiasis is partially imaged. Bones/joints: No suspicious bone lesions. No acute osseous findings. There is mild degenerative disease at both shoulders. There are healed right upper posterior rib fractures. Soft tissues: The extrathoracic soft tissues are unremarkable. CT/CT chest w con* [id number] IMPRESSION: 1. 2.6 cm left upper lobe pulmonary nodule with surrounding parenchymal architectural distortion is stable since 06/08/2024 and is consistent with residual neoplasm or scar associated with post treatment changes in the surrounding lung. 2. Stable left hilar bronchial wall thickening compared to 06/08/2024 consistent with residual neoplasm or treatment changes. 3. Moderate centrilobular emphysema. 4. Incidental findings above. COMMENTS: The presence of pulmonary emphysema on CT is an independent risk factor for lung cancer. In the absence of a history or active diagnosis of lung cancer, it is recommended that this patient with emphysema be evaluated for enrollment in a low dose CT lung cancer screening program.
[2024-12-13 12:34] LABS: Blood Urea Nitrogen 24 mg/dL (8-23)
[2024-12-13] MEDS: iohexol 350 mg/mL 500 mL Btl (per mL) IV (12:38)
== END 2024-12-20 23:59 | disposition home or self-care (01) ==
LOC: RAD 12-14 00:01 → ONCMED 12-14 09:59
PROVIDERS: Radiology Radiation Oncology; PCP Family Medicine; Visit Provider Radiology Radiation Oncology
DX: C34.90 Malignant neoplasm of unspecified part of unspecified bronchus or lung; R91.1 Solitary pulmonary nodule; R91.8 Other nonspecific abnormal finding of lung field; J43.2 Centrilobular emphysema; Z96.89 Presence of other specified functional implants; J98.4 Other disorders of lung; I70.0 Atherosclerosis of aorta; K80.20 Calculus of gallbladder without cholecystitis without obstruction; M19.012 Primary osteoarthritis, left shoulder; M19.011 Primary osteoarthritis, right shoulder; Z87.81 Personal history of (healed) traumatic fracture; Z53.9 Procedure and treatment not carried out, unspecified reason
CPT/HCPCS: 71260; 76770; 76857; 82565; 84520

== ENCOUNTER 2024-12-27 08:42 | Oncology outpatient (recurring) (ONCR) | payer MEDICARE, OTHER, SELFPAY ==
--- NOTE | 2024-12-27 09:47 | ONCRAD EPV_ITS ---
Radiation Oncology Established Patient Visit Patient: Omer Snell [id number] : 1945 Age: 79 Sex: Male Dictated by: Dr. 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 ID: [id number], Energy: 6X, Dose/Fx (cGy): 200, #Fx: 30 / 30, Dose Correction (cGy): 0, Total Dose Delivered (cGy): 6,000, Start Date: 09/09/2023, End Date: 10/21/2023, Elapsed Days: 42 Current History: Doing well with no complaints. Active first four hours a day. Appetite good. has noted a 20 pound weight loss over several months. Still smoking ??? ppd. CT chest stable 2.6 cm EDENILSON nodule compared to 05/2024 imaging. No other significant findings. Current Medications: albuterol sulfate 90 mcg/actuation (Ventolin HFA) 2 inhalations inhalation Q8H PRN ascorbic acid (vitamin C) 1,000 mg PO DAILY [Bone Growth Stimulator As directed] bupropion HCl SR (Wellbutrin SR) 150 mg PO DAILY cholecalciferol (vitamin D3) 50 mcg PO DAILY docusate sodium (Colace) 100 mg PO BID gabapentin 300 mg PO TID PRN hydrochlorothiazide 25 mg PO QAM lovastatin 40 mg PO BEDTIME magnesium oxide 250 mg PO DAILY multivitamin 1 tab PO DAILY omeprazole 20 mg PO BID potassium gluconate 99 mg PO DAILY saw palmetto 900 mg PO DAILY tiotropium bromide 1.25 mcg/actuation (Spiriva Respimat) 2 puffs inhalation DAILY [id number] 100 mg-150 mg- 50 mg-150 mg 1 cap PO DAILY zinc acetate (Galzin) 50 mg PO DAILY Allergies: No known allergies. Current Complaints / Review of Systems: . Vital Signs: Performed on 12/27/2024 8:57 AM BMI - 24.185 kg/m2 (high), Height - 71 in, Weight - 173.4 lbs, Temperature - 96.6 f, Pulse - 69 /min, Respiration - 18 /min, O2 Sat - 100 %, Pain - 0, Fatigue - 0 and BP - 176/ 79 mm(hg)(high/). Physical Exam: General: Alert and oriented x 3. No acute distress. Port in right chest No palpable adenopathy. Lungs clear. No pedal edema. Performance Status: ECOG PS 0 Lab: None pending. Pathology: Primary, c34.12 - malignant neoplasm of upper lobe, left bronchus or lung, Diagnosed 07/15/2023 (active) . Imaging: See HPI Impression: Doing well post treatment. Needs to quit smoking. Stable post treatment changes in EDENILSON. We will see him in [address] chest. Signed by: 12/27/2024 9:45:57 AM <<Signature on File>> Time spent with patient: CPT Code: CPT Code:
== END 2025-01-20 23:59 | disposition home or self-care (01) ==
PROVIDERS: PCP Family Medicine; Visit Provider Radiology Radiation Oncology
DX: Z45.2 Encounter for adjustment and management of vascular access device (principal); C34.12 Malignant neoplasm of upper lobe, left bronchus or lung; Z92.3 Personal history of irradiation
CPT/HCPCS: 96523; 99024

== ENCOUNTER → 2025-06-07 07:52 | Outpatient (BNVA) | payer MEDICARE, OTHER, SELFPAY | PROVIDERS: PCP Family Medicine; Visit Provider Orthopaedic Surgery | DX: Z47.89 Encounter for other orthopedic aftercare (principal); Z98.1 Arthrodesis status | CPT/HCPCS: 72100; 99213 ==